=== PATIENT | female | born 1930 | race African-American/Black ===

== ENCOUNTER 2018-08-01 06:07 | Inpatient (IN) ==
--- NOTE | 2018-08-01 07:48 | Diag Imaging Result Doc PS360 ---
EXAM: CHEST-PORTABLE 08/01/2018 HISTORY: ams TECHNIQUE: AP portable at 0739 COMMENT: There is a left pleural effusion. The patient is rotated to the right. There is some interstitial opacity consistent with pulmonary edema. There is cardiomegaly. IMPRESSION: Left pleural effusion. Pulmonary edema. Electronically signed by Jemal Poe 08/01/2018 7:46 AM
--- NOTE | 2018-08-01 08:29 | PROVIDER DOCUMENTATION ---
HPI-General Adult - General Chief Complaint: Altered Mental Status Stated Complaint: AMS Time Seen by Provider: 08/01/18 07:11 Source: family, old records, other (Dr Moreira) Allergies/Adverse Reactions: Patient Allergies Allergy/AdvReac Type Severity Reaction Status Date / Time No Known Allergies Allergy Verified 05/29/18 20:21 Home Medications: Home Medication List Medication Instructions Recorded Confirmed Last Taken Type PRAVAstatin [Pravachol] 40 mg PO HS 12/13/13 05/29/18 05/07/18 21:00 History Folic Acid 1 mg PO QAM 10/30/14 05/29/18 05/07/18 09:00 History Arginine/Glutamine/Calcium Hmb 1 dose PO BID 04/19/17 05/29/18 05/07/18 21:00 History [Tom Packet] Calcium Carbonate/Vitamin D3 1 tab PO BID 04/19/17 05/29/18 05/07/18 21:00 History [Calcium 600 + Vit D Tablet] Brimonidine/Timolol Ophth Soln 1 drop BOTH EYES TID 03/12/18 05/29/18 05/07/18 21:00 History [Combigan Ophth Soln] Levothyroxine [Synthroid] 100 microgm PO QAM 03/12/18 05/29/18 05/07/18 09:00 History Nephro Liquid 3 oz PO DAILY 05/03/18 05/29/18 05/07/18 09:00 History Omeprazole 40 mg PO BID #60 capsule. 05/08/18 05/29/18 Unknown Rx Acetaminophen [Tylenol] 650 mg PO Q6H PRN #0 07/02/18 05/29/18 04/18/17 14:30 Rx Albuterol 2.5MG/Ipratrop 0.5MG 3 ml INH Q2H PRN PRN neb 07/02/18 Unknown Rx [Duoneb (A & A)] Docusate Sodium [Colace] 100 mg PO ORDERED PRN #0 07/02/18 05/29/18 Unknown Rx Hydrocortisone 2.5% Cream 1 applic NC BID #1 tube 07/02/18 Unknown Rx [Anusol-Hc Cream] Lidocaine 5% Patch [Lidoderm] 1 each TOP DAILY patch 07/02/18 Unknown Rx Menthol/Zinc Oxide Ointment 1 applic TOP PRN PRN tube 07/02/18 Unknown Rx [Calmoseptine Ointment] Midodrine [Proamatine] 10 mg PO TID tablet 07/02/18 Unknown Rx Sucralfate [Carafate Liquid] 1 gm PO Q6HR #100 tab 07/02/18 Unknown Rx - History of Present Illness -Gen Adult Nature of Presenting Problems: 87 yo AAF hemodialysis patient was brought to the ER from a SNF due to altered mental status, tachycardia, and general failure to thrive. She was hospitalized recently for six weeks with similar problems, was seen by multiple consultants and reated with antibiotics, hemodialysis , etc. The daughterr apparently refused placement of a feeding tube and she did develop a stage 4 sacral decubitus ulcer. She now has a wound Vac in place. Her daughter is not agreeable to discontinuing dialysis, DNR status or feeding tube. Review of Systems - Adult - REVIEW OF SYSTEMS - ADULT Constitutional: reports: fatique, weight loss Past History - Adult - PAST MEDICAL HISTORY-ADULT Review of Records: reports: Old Records Reviewed Major Childhood Illnesses: reports: denies history Cardiovascular: reports: A-Fib, CAD, CHF (Echo 09/28/13 EF 20-30%), HTN, heart valve problem (tricuspid regurgitation), hyperlipidemia, other (cardiomegaly) Respiratory: reports: COPD, lung disease (pulmonary htn), pneumonia (frequent) Gastrointestinal: reports: denies history Obstetrical/Gynecological: reports: denies history Genitourinary: reports: dialysis (mwf), ESRD, kidney disease (CRI) Musculoskeletal: reports: denies history Neurological: reports: denies history Endocrine/Immune: reports: Diabetes, thyroid disorder Other Conditions: reports: cataract/glaucoma - PRIOR SURGERIES/PROCEDURES Surgical/Procedure History: reports: CABG, cholecystectomy (cataract removal; 3 bypass; intestinal blockage), other (cataract removal) - IMMUNIZATION STATUS Childhood Immunizations: See Nurse Assessment Flu Vaccine: See Nurse Assessment - FAMILY HISTORY Family History: reviewed, not pertinent Physical Exam-General - PHYSICAL EXAM-ADULT Initial Vital Signs Reviewed: Yes - CONSTITUTIONAL General Appearance: moderate distress, cachetic, obtunded - EYES Eyes: pink conjunctivae - HEAD, EARS, NOSE, MOUTH & THROAT HENMT: moist mucous membranes, dental decay. negative: pharynx normal, angioedema - NECK Neck: non-tender. negative: C-spine tenderness - RESPIRATORY Respiratory: chest non-tender, decreased breath sounds, crackles, rhonchi - CARDIOVASCULAR Cardiovascular: JVD, tachycardia, irregularly irregular. negative: normal peripheral pulses - GASTROINTESTINAL (ABDOMEN) Abdominal Exam: non tender, soft, no organomegaly, no pulsatile mass - LYMPHATIC Lymphatic: no adenopathy - MUSCULOSKELETAL Back Exam: kyphosis, swelling. negative: normal inspection Extremity: other (profound muscle mass loss, developing leg and ankle contractors) - SKIN Integumentary: normal color, warm/dry, decubitus (4 x 6 stage IV sacral decubitus ulcer). negative: normal turgor - NEUROLOGIC Neurologic: abnormal gait, motor weakness Progress - PLAN OF CARE/RESULTS Progress/Plan/Lab Results: Vital Signs - 8 hr 08/01/18 06:23 08/01/18 06:54 Pulse Rate 134 H 127 H Respiratory Rate 32 H 30 H Blood Pressure 91/62 91/62 O2 Sat by Pulse Oximetry 97 98 Orders Category Date Time Status CHEST-PORTABLE [RAD] Stat Exams 08/01/18 07:33 Completed BLOOD CULTURE [BLDCUL] Stat Lab 08/01/18 08:09 Ordered CBC WITH ELECTRONIC DIFF [HEME] Stat Lab 08/01/18 08:09 Ordered COMPREHENSIVE METABOLIC PANEL [CHEM] Stat Lab 08/01/18 08:09 Ordered UA NIMS W/REFLEX CULT [URINALYSIS] Stat Lab 08/01/18 07:32 Ordered Result Diagrams: 08/01/18 08:33 - CONSULTS/PCP/HOSPITALIST Notification #1 *Consult/PCP/Hospitalist*: Dr Moreira Time Discussed: 08:00 Consult Disposition: Will see in ED #2 Consult: Dr Mullen Time Discussed: 08:20 Consult Disposition: Will see in ED Departure - Departure Date of Disposition Decision: 08/01/18 Time of Disposition Decision: 08:47 DIAGNOSIS: Altered mental status Qualifiers: Altered mental status type: stupor Qualified Code(s): R40.1 - Stupor Disposition: ADMITTED INPATIENT 09 Certified Medical Emergency: Emergent Condition: Serious Referrals and Follow-Ups: Basim Jacobo III, MD [Primary Care Provider] - - Critical Care Note This patient required my direct & personal management of CC.: Yes Total Time (mins): 35 Critical Care Statement: This patient required my direct personal management to treat or rule out processes, the absence of which, could potentiallly result in sudden, clinically significant life or limb threatening deterioration. Attestation - Physician/ MENRA Attestation The physician spent face to face time with patient:: Yes Advanced Practice Provider documentation review:: Supervising physician onsite and consulted in the evaluation and care of this patient. The physician did have a face to face encounter with the patient.
[2018-08-01 08:43] LABS: BASO# 0.03 X1000 (0.0-0.2); BASO% 0.2 % (0.0-0.8); EOS# 0.01 X1000 (0.0-0.7); EOS% 0.1 % (0.0-10.0); HEMATOCRIT 26.5 % (37.0-47.0); HEMOGLOBIN 7.6 g/dL (12.0-16.0); IMM GRAN# 0.14 X1000 (0.0-0.04); IMM GRAN% 0.9 % (0.0-0.5); LYMPH# 0.67 X1000 (1.2-3.4); LYMPH% 4.5 % (20.5-51.1); MCH 28.3 PG (27-31); MCHC 28.7 g/dL (33-37); MCV 98.5 FL (81-99); MONO# 0.55 X1000 (0.11-0.59); MONO% 3.7 % (1.7-9.3); MPV 11.1 FL (7.4-10.4); NEUT# 13.45 X1000 (1.4-6.5); NEUT% 90.6 % (42.2-75.2); PLT 178 X1000 (130-400); RBC 2.69 XMIL (4.2-5.4); RDW 22.1 % (11.5-14.5); WBC 14.85 X1000 (4.8-10.8)
[2018-08-01] MEDS ORDERED: INVANZ 0.5 GM in NS 50 ML IV SCH ×3 (09:00→20:00)
[2018-08-01] MEDS ORDERED: VANCOMYCIN IV PER PHARMACY MISC SCH ×2 (09:00→09:30)
[2018-08-01 09:08] LABS: ALB/GLOB RATIO 0.4; CALCIUM 8.2 mg/dL (8.8-10.2); CREATININE 2.7 mg/dL (0.5-0.9); TOTAL BILIRUBIN 1.49 mg/dL (0.20-1.00); TOTAL PROTEIN 6.7 g/dL (6.3-8.3)
[2018-08-01] MEDS ORDERED: NS 2,000 ML MISC PRN (09:10)
[2018-08-01] MEDS ORDERED: ALBUMIN 25% IV PRN (09:10)
[2018-08-01] MEDS ORDERED: HEPARIN IV PRN (09:10)
[2018-08-01] MEDS ORDERED: TIGHT: 0.2 ML/HR FOR DIALYSIS MISC PRN (09:10)
--- NOTE | 2018-08-01 09:35 | NEPHROLOGY CONSULTATION ---
DATE: 08/01/2018 REASON FOR CONSULTATION: Renal failure. CONSULTING PHYSICIAN: Dr. Corbin Tripp. HISTORY OF PRESENT ILLNESS: Ms. Henson is an 87-year-old, black female, who is well known to us. She was recently hospitalized at this facility with shingles as well as zoster meningoencephalitis. This was complicated by malnutrition, sacral decubitus, pneumonia, etc. [facility] being discharged from this facility on the 02 of July. She was seen by her daughter on 07/31/2018. At that time, the family states that she was in her usual state of health. Specifically, she was able to sit up in the chair, eat her breakfast and she was able to converse at her normal level of interaction. She was called this morning and told that the patient was unresponsive and was being transferred to the emergency room. At the time of my evaluation, the daughter is at the bedside and she does relate that the patient is not at her baseline. She is lying facing to the right. She calls out, but otherwise was not verbal during my interaction with the daughter. During my previous exam of the patient about 1 hour earlier, she was able to tell me that she had no complaints and that she was not hurting or short of breath, nauseated or vomiting. PAST MEDICAL HISTORY: Includes CKD 5D, hypotension, hyperlipidemia, malnutrition, hypothyroidism. Otherwise as above. HOME MEDICATIONS: Include pravastatin folate, Tom, calcium carbonate, Combigan ophthalmic, levothyroxine, Nepro, omeprazole, albuterol, ipratropium, docusate, lidocaine patch, midodrine, sucralfate. ALLERGIES: None. SOCIAL HISTORY: As above. She resides in [facility]. No alcohol or tobacco. FAMILY HISTORY: Noncontributory. REVIEW OF SYSTEMS: Noncontributory. PHYSICAL EXAMINATION: Vital Signs: Blood pressure 91/62, heart rate 127. Respirations 30. General: No acute distress. Mental status as above. Skin: Warm and dry. Sacral decubitus is not examined. HEENT: Conjunctivae are pink. Pupils are equal. Oropharynx is moist. Facial wasting is present. Neck: Neck veins are distended. Trachea is midline. Heart: PMI nondisplaced, irregular, tachycardic with a murmur. Lungs: Have equal breath sounds. Shallow, no crackles or wheezes. Abdomen: Soft, nontender. Bowel sounds present. No organomegaly, masses, bruits. Extremities: Have minimal edema. No clubbing or cyanosis. Neurologic Exam: Limited, but nonfocal. She has generalized weakness. IMPRESSION: 1. Altered mental status. She does have a mildly elevated white count 14.8. Temperature has not been measured yet. We will need to presume that she has a source of systemic infection. Consider pneumonia, cellulitis related to her ulcer; sepsis, catheter related, etc. Empiric broad-spectrum antibiotics after cultures obtained. 2. Chronic kidney disease 5D. She will have dialysis today. She does have evidence of volume overload on exam. Specifically, she has neck vein distention and pulmonary edema by chest x- ray. 3. Electrolytes/acid base. Data are pending. 4. Atrial fibrillation with rapid ventricular response. She is being treated currently by the primary team. cc: Gera Roberts MD
--- NOTE | 2018-08-01 09:49 | EKG Report ---
Test Performed on : 08/01/2018 06:49:55 AM Test Reason : NO EKG ORDER FOR MUSE Blood Pressure : / mmHG Vent. Rate : 125 BPM Atrial Rate : 065 BPM P-R Int : 000 ms QRS Dur : 138 ms QT Int : 370 ms P-R-T Axes : 000 222 005 degrees QTc Int : 534 ms Undetermined rhythm Right bundle branch block , plus right ventricular hypertrophy Possible Lateral infarct (cited on or before 12-JUN-2018) Abnormal ECG When compared with ECG of 12-JUN-2018 01:58, Current undetermined rhythm precludes rhythm comparison, needs review Questionable change in initial forces of Lateral leads Unconfirmed Result
[2018-08-01] MEDS ORDERED: INVANZ 0.5 GM in NS 50 ML IV ONE (10:00)
[2018-08-01] MEDS ORDERED: VANCOMYCIN 1 GM/NS 1 GM/250 ML IVPB IV ONE (10:00)
--- NOTE | 2018-08-01 11:29 | CONSULTATION ---
DATE OF CONSULTATION: 08/01/2018 REQUESTING PHYSICIAN: Hospitalist service. REASON FOR CONSULTATION: Consult is concerning a sacral decubitus. HISTORY OF PRESENT ILLNESS: An 87-year-old female, known to me, who has been hospitalized previously with shingles zoster and meningeal encephalitis. Her stay was complicated by malnutrition, sacral decubitus, pneumoniae. She had been in a shelter and discharged on 07/02/2018. Apparently, she has had decline in change in mental status. They have been doing wound VAC changes to the sacral decubitus, but she was admitted for renal failure and altered mental status. I was asked to weigh an opinion. The patient is nonverbal. There was no family at the bedside to give further information so details from her past medical reviewed from the chart and from previous evaluations. PAST MEDICAL HISTORY: Chronic kidney disease, hypertension, hyperlipidemia, malnutrition, hypothyroidism. PAST SURGICAL HISTORY: Includes coronary artery bypass, cholecystectomy, right chest wall tunneled hemodialysis catheter. FAMILY HISTORY: Unable to obtain secondary to patient's mental status. SOCIAL HISTORY: Unable to obtain. ALLERGIES: None. MEDICATIONS: MAR reviewed. REVIEW OF SYSTEMS: Unable to obtain secondary to mental status. PHYSICAL EXAMINATION: Vital Signs: The patient is currently afebrile. She does have heart rate in the 120s. Respiratory rate recorded at 30. General: Ill-appearing female looks stated age. HEENT: Normocephalic, atraumatic. Pupils equal, round, reactive to light. Mucous membranes moist. Oropharynx benign. Neck: Supple. Trachea midline. Cardiovascular: Irregularly irregular and tachycardic. Lungs: Grossly clear. Abdomen: Soft, nontender, nondistended. Sacral region with a sacral decubitus with slough noted approximately 4 cm in diameter. It seems to go down close to the bone. I do not see any exposed bone. There is a foul smell associated with it. Extremities: Minimal edema. Neurologic Exam: Limited. LABORATORY: White blood cell count 14, hematocrit 26, platelet count 178,000. Remainder of labs reviewed. ASSESSMENT AND PLAN: An 87-year-old female with stage 3 sacral decubitus. 1. Stage 3 sacral decubitus. At this time, it could be close to a stage 4 but, at this time, given the amount of slough, we will try Vashe wet-to-dry dressing changes twice a day with application of Santyl once a day. We will get wound care involved. We will hold off on the wound VAC for right now. We will see how she does. 2. Multiple medical comorbidities currently being managed by the hospitalist service. cc: Kingsley Villegas MD
[2018-08-01] MEDS ORDERED: VANCOMYCIN 1 GM/NS 1 GM/250 ML IVPB IV SCH ×2 (11:30→16:30)
[2018-08-01] MEDS ORDERED: CARDIZEM IV ONE (11:37)
--- NOTE | 2018-08-01 12:16 | INFECTIOUS DISEASE CONSULT REP ---
DATE: 08/01/2017 CONCLUSION: Patient is admitted to the hospital with a very severe sacral decubitus infected ulcer and an associated osteomyelitis of the sacrum. RECOMMENDATIONS: I have obtained a wound culture from the decubitus ulcer. I agree with treating the patient with ertapenem because earlier she had an infection with an extended spectrum beta lactamase producing organism. I have also added vancomycin in a dose of 1 g IV after each dialysis. I have taken a culture from the sacral wound and have sent it to the Microbiology Lab for culture and susceptibility testing. DISCUSSION: The patient is unable to provide a history. The family member present did not have full knowledge about the patient's illnesses. Information I did obtain was from the computer. The patient is an elderly female. She has end-stage renal disease and is on hemodialysis. She also has hypotension, hyperlipidemia, malnutrition, and hypothyroidism. The patient's laboratory studies thus far show blood cultures have been drawn but the results are not pending. CBC shows a white count of 14,850. Hemoglobin 7.6 and platelet count 178,000. Creatinine is 2.7. GFR is 20. Liver function studies are normal except for slight elevation of the alkaline phosphatase at 115. Blood cultures, as mentioned above, are pending, and I have obtained a culture from the sacral wound and sent it to the Microbiology Laboratory. Chest x-ray shows findings compatible with pulmonary edema. Also present is a left pleural effusion. The [facility] a [facility]. MEDICATIONS IN THE [facility]: 1. Albuterol inhaler. 2. Eyedrops, namely Combigan ophthalmic solution. 3. Colace. 4. Folic acid. 5. Synthroid. 6. Omeprazole. 7. Pravachol. 8. Sucralfate. PHYSICAL EXAMINATION: Vital Signs: No temperature was listed in the chart. Her pulse is 127, respirations are 30, blood pressure was 91/62. General: This is a cachectic, chronically ill- appearing, elderly female, who has a decreased level of consciousness. Head/eyes/ears/nose/throat: No drainage was noted from the nose or ears. Patient did not respond to oral stimuli. Neck: No meningismus. Lungs: Scattered rhonchi bilaterally. Cardiovascular: Heart rate was rapid and irregular. Neck: The patient has a right-sided internal jugular vein catheter used for dialysis. Abdomen: Soft and apparently not tender. Back : There is a large sacral decubitus ulcer. It has a foul odor. There is purulence as black tissue indicating necrosis. The sacral bone was palpable with my gloved hand, thereby, confirming the diagnosis of sacral osteomyelitis. Chest x-ray shows findings compatible with pulmonary edema and a left pleural effusion. Neurologic: The patient did respond to verbal stimuli. I did not see her make any movement while I was examining her. Integument: No rash noted. I also think it would be important to discuss with the family about doing hospice treatment and doing comfort measures because I think her sacral wound cannot be healed. Thank you for the consult. cc: Ward Brennan MD MTDD
--- NOTE | 2018-08-01 12:25 | HISTORY AND PHYSICAL ---
CHIEF COMPLAIN: Acute encephalopathy, tachycardia, and failure to thrive. HISTORY OF PRESENT ILLNESS: The patient appears to have acute encephalopathy and is not able to contribute to the history meaningfully. The history was obtained from emergency room records and the patient's daughter at bedside. Ms. Henson is an 87-year-old woman with a past medical history of end-stage renal disease on dialysis, large sacral decubitus ulcer with rectal prolapse, multiple ESBL UTIs, and others, who was recently admitted to [facility] 1 month prior for herpes virus associated acute encephalopathy and hypotension, [facility] for gradually failing to thrive and confusion. Apparently the baseline mental status of the patient is she is alert and can answer simple questions intermittently. However, she has been progressively declining since discharge a month prior. Her p.o. intake had been significantly decreasing and she had started increasing becoming drowsy. The [facility] the [facility] was also noted to have worsening decubitus ulcer of her sacral wound and she had pus- like discharge coming out, following which she was started on antibiotics. A wound VAC was placed at least couple of weeks ago at the [facility], as per the history given by the daughter. Today morning when the family arrived, the patient was noted to have a high heart rate and she was also very confused, so she was sent to the emergency room. EMERGENCY ROOM COURSE: In the emergency room, the patient was found to have tachycardia, likely atrial fibrillation with heart rate of 120s. She was also found to have leukocytosis. There was pus-like discharge coming out of sacral decubitus, so she was admitted for suspected sepsis from sacral decubitus. Intravenous antibiotics were started. REVIEW OF SYSTEM: The patient does not appear in any acute distress. Review of system could not be obtained. According to patient's daughter, the patient did not have a known headache. She did not complain of chest pain or shortness of breath. Abdomen: She did not have any nausea, vomiting, or abdominal pain according to the daughter. Genitourinary: Patient occasionally makes urine. However, daughter could not provide much history. Otherwise review of systems were negative. PAST MEDICAL HISTORY: 1. History of type 2 diabetes mellitus. 2. End-stage renal disease, on dialysis. 3. Cardiomyopathy. 4. Pulmonary artery hypertension. 5. Chronic atrial fibrillation. 6. Hyperlipidemia. 7. Coronary artery disease status post CABG. 8. 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 9. Thrombocytopenia. 10. Anemia of chronic disease. PAST SURGICAL HISTORY: 1. Coronary artery bypass graft. 2. Cholecystectomy. 3. Right tunneled dialysis catheter placement. FAMILY HISTORY: Positive for heart disease and diabetes. SOCIAL HISTORY: She is currently not using tobacco, alcohol, or drugs. [facility] in a [facility]. ALLERGIES: No known allergies. HOME MEDICATIONS: At the time of discharge she was sent on Tom packet 1 p.o. b.i.d., Combigan ophthalmic solution 1 drop both eyes t.i.d., calcium vitamin D 1 tablet b.i.d., folic acid 1 mg in the morning, Synthroid 100 mcg in the morning, Nepro 3 ounces p.o. daily, Pravachol 40 mg at nighttime, Tylenol 650 mg q.6 hours p.r.n., DuoNeb 3 mL inhaled q.2 hours p.r.n. , Colace 100 mg as tolerated, Anusol cream 1 application p.r. b.i.d., Lidoderm 1 topical daily, Calmoseptine for diaper rash, midodrine 10 mg t.i.d., Prilosec 40 mg b.i.d. PHYSICAL EXAMINATION: VITAL SIGNS: Temperature is 98.8 degrees, pulse 125 per minute, blood pressure 100/57, saturating 98% on room air. GENERAL: The patient appears in mild distress. Does not follow commands. She appears awake and occasionally agitated. RESPIRATORY: Air entry bilaterally equal. No wheeze, rhonchi, or crackles. CARDIOVASCULAR: S1, S2 normal. No murmur or gallop. Tachycardic. ABDOMEN: Soft, nontender. EXTREMITIES: Lower extremities, mild edema. SKIN: She has an unstageable sacral decubitus ulcer which is extending up to the bone. She has a wound VAC and there was liquidy pus coming out of it. LABS: Suggestive of leukocytosis, normocytic anemia, normal platelet count, hypernatremia, end- stage renal disease related elevated BUN and creatinine, elevated total bilirubin. MICROBIOLOGY: Blood culture and wound cultures are in the lab. ASSESSMENT AND PLAN: 1. Acute encephalopathy, likely a combination of severe sepsis and now gradual physical deconditioning. I did not have any focal neurological deficit on my examination as she was moving all of her extremities and pupils were bilaterally equal and reacting to light. I will consider getting a head CT when she is more stable. 2. 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 She also previously had multiple ESBL UTIs. Follow up with urine culture, which would likely grow organisms. Continue broad-spectrum vancomycin and intravenous ertapenem for now. 3. Atrial fibrillation with RVR. I will go ahead and give a 1 time dose of diltiazem. Considering her severe anemia and her general debility, she may not be the ideal candidate for anticoagulation. I will also consider PO metoprolol if IV access is an issue. I think her AFib is secondary to Sepsis. If needed in the future, I will consult Cardiology. 4. End-stage renal disease, on dialysis. Dr. Roberts has been consulted. 5. Type 2 diabetes mellitus. I will continue frequent blood sugar checks and if needed we will add insulin to her regimen. 6. Disposition. The patient remains inside the hospital for her sepsis. The patient's general condition has significantly declined. Her code status is DNR level 1. I will go ahead and have palliative care consult and to have discussion with the patient's family members about need for hospice care. Plan of care was initially discussed with the patient 's daughter at bedside and son later on. cc: Ace Guerra MD MTDD
[2018-08-01] MEDS: HEPARIN SUBQ SCH ×2 (12:39→22:17)
[2018-08-01] MEDS: PROTONIX IV SCH (12:39)
[2018-08-01] MEDS: PROAMATINE PO SCH ×2 (12:40→16:24)
[2018-08-01] MEDS ORDERED: ALBUMIN 25% IV ONE (14:27)
[2018-08-01] MEDS: INVANZ 0.5 GM in NS 50 ML IV SCH (18:05)
[2018-08-01] MEDS: SANTYL OINT TOP SCH (18:06)
--- NOTE | 2018-08-02 06:05 | GENERAL SURGERY PROGRESS NOTE ---
DATE: 08/02/2018 The patient was transferred to a private room. Discussed her case with Chapis Talavera, with Wound Care. We will do Vashe wet-to-dry dressing and try to see if we can clean this wound. We will also apply Santyl. May be difficult to get this wound to heal, but we will continue supportive care. cc: Kingsley Villegas MD
[2018-08-02 06:56] LABS: INR 1.13; PROTIME 15.4 Seconds (11.0-16.0)
[2018-08-02 06:57] LABS: PTT 45.8 Seconds (22.3-41.8)
[2018-08-02 07:05] LABS: BASO# 0.03 X1000 (0.0-0.2); BASO% 0.2 % (0.0-0.8); EOS# 0.61 X1000 (0.0-0.7); EOS% 4.3 % (0.0-10.0); HEMATOCRIT 23.8 % (37.0-47.0); HEMOGLOBIN 6.8 g/dL (12.0-16.0); IMM GRAN# 0.08 X1000 (0.0-0.04); IMM GRAN% 0.6 % (0.0-0.5); LYMPH# 0.62 X1000 (1.2-3.4); LYMPH% 4.4 % (20.5-51.1); MCH 28.1 PG (27-31); MCHC 28.6 g/dL (33-37); MCV 98.3 FL (81-99); MONO# 0.36 X1000 (0.11-0.59); MONO% 2.6 % (1.7-9.3); MPV 11.6 FL (7.4-10.4); NEUT# 12.39 X1000 (1.4-6.5); NEUT% 87.9 % (42.2-75.2); PLT 151 X1000 (130-400); RBC 2.42 XMIL (4.2-5.4); WBC 14.09 X1000 (4.8-10.8)
[2018-08-02 07:12] LABS: CALCIUM 8.3 mg/dL (8.8-10.2); CREATININE 1.7 mg/dL (0.5-0.9); POTASSIUM 3.6 mmol/L (3.5-5.1)
--- NOTE | 2018-08-02 07:26 | NEPHROLOGY PROGRESS NOTE ---
DATE: 08/02/2017 SUBJECTIVE: Patient currently resting in bed. Minimal response. OBJECTIVE: Vital Signs: Temperature 99.1, pulse 92, respiratory rate 28, blood pressure 77/33. Intake has not been documented. Output none. PHYSICAL EXAMINATION: General: This is an acutely ill-appearing elderly female resting in bed. Her eyes are closed, but she will rouse and moan with tactile stimuli. She does not respond verbally other than moaning. HEENT: Normocephalic, atraumatic. Oral mucosa appears dry. Dentition is poor. Neck is supple. There is no JVD. Cardiovascular reveals irregularly irregular rhythm. She has a controlled rate. Pulmonary: She is on O2 supplementation. She has no increased work of breathing. She does have decreased breath sounds posteriorly. There are no crackles or wheeze. Abdomen is soft flat, positive bowel sounds. : Not inspected. Minimal void. Extremities: There is no clubbing, cyanosis. No edema is noted. Integumentary: Skin is dry and warm. LAB DATA: Pending. ASSESSMENT AND PLAN: 1. Chronic kidney disease 5D. She was dialyzed yesterday per her routine. We were unable to achieve any ultrafiltration and actually had to give some albumin during treatment to maintain blood pressures. She does not have any indications for dialysis today. We will plan to dialyze her again in the morning and continue her routine treatment. 2. Altered mental status, elevated white count, sepsis. Blood cultures are still pending. Chest x-ray indicated pleural effusion and pulmonary edema but no pneumoniae. They have been unable to obtain a urine specimen. She is currently on ertapenem, vancomycin. We will continue these treatments. 3. Electrolytes, acid-base balance, anemia. Continue her routine treatments. DISPOSITION: She is a DNR I. No change in her dialysis plan at this time. I have discussed the role of [facility] with her family several times in the past. They are satisfied with the outcome of dialysis currently. rg Dictated by MANDI Eli for Gera Roberts MD Face to face encounter, data reviewed, discussed with David Moreno on 08/02/17. I agree with the above assessment and plan of care. rg cc: Gera Roberts MD [facility]
[2018-08-02 07:37] LABS: LYMPHS 4 % (21-51); SEGS 96 % (42-75)
[2018-08-02] MEDS ORDERED: NS 500 ML IV ONE (07:46)
--- NOTE | 2018-08-02 09:38 | EKG Report ---
Test Performed on : 08/02/2018 08:42:37 AM Test Reason : chest pain Blood Pressure : / mmHG Vent. Rate : 116 BPM Atrial Rate : 129 BPM P-R Int : 000 ms QRS Dur : 144 ms QT Int : 396 ms P-R-T Axes : 000 234 027 degrees QTc Int : 550 ms Atrial fibrillation. with rapid ventricular response. with premature ventricular or aberrantly conduc nevin complexes. Right bundle branch block Abnormal ECG When compared with ECG of 01-AUG-2018 06:49, (Unconfirmed) Previous ECG has undetermined rhythm, needs review Borderline criteria for Lateral infarct are no longer present Confirmed by [place] LEON, Yohannes Saldaña ([id number]) on 08/02/2018 7:43:39 PM
[2018-08-02] MEDS: PROAMATINE PO SCH ×3 (10:09→17:53)
[2018-08-02] MEDS ORDERED: NS 500 ML ONE (12:33)
[2018-08-02] MEDS: HEPARIN SUBQ SCH ×2 (12:42→20:28)
[2018-08-02] MEDS: SANTYL OINT TOP SCH (14:00)
--- NOTE | 2018-08-02 15:14 | PROGRESS NOTE ---
DATE: 08/02/2018 INTERVAL HISTORY: The patient remains encephalopathic. Blood pressure with downtrend this morning, but did respond somewhat to small fluid bolus. The patient's sepsis favored to represent infected decubitus ulcers related to advanced dementia, malnutrition and failure to thrive. [place] likely poor to grim, but family continues to insist that everything be done. We will help to continue to discuss with family. Palliative Care following and also discussing the situation with family. REVIEW OF SYSTEMS: Unable to obtain secondary to patient's mental status. LABS: WBC 14, hemoglobin 6.8, hematocrit 23.8, platelets 151. INR 1.1. PT 15.4. Sodium 142, potassium 3.6, bicarbonate 18. BUN 33, creatinine 1.7, glucose 158. OBJECTIVE: Vitals: T-max 99.1 degrees, pulse 117, respirations 18, blood pressure 84/32, O2 saturation 100% on 2 L by nasal cannula. General: On physical examination, no acute distress, chronically ill appearing, slightly cachectic, elderly female laying in bed. Vitals: As above. HEENT: Normocephalic, atraumatic. Neck: No cervical adenopathy. Tunneled dialysis catheter noted in right neck/upper chest. Cardiovascular: Slightly tachycardic, intermittently irregular. No murmurs noted. Pulmonary: Largely clear to auscultation bilaterally with only slight decrease at the left base. Abdomen: Soft, nontender, nondistended. Bowel sounds decreased, but present. Extremities: Peripheral pulses decreased, but present. No clubbing or cyanosis noted. There is 1+ to 2+ pitting edema bilateral lower extremities and left arm. Qbmtcx-bi-st swelling of right upper extremity noted. Psychiatric: Patient somnolent, responsive only to noxious stimuli. Occasional nonpurposeful movement and moaning, but unable to converse. ASSESSMENT AND PLAN: 1. Severe sepsis bordering on septic shock: Suspected source is sacral decubitus ulcers. 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 Multiple resistant urinary tract infections in the past, currently on vancomycin and ertapenem. We will continue this for now. Overall prognosis quite poor. 2. Metabolic encephalopathy: The patient with fairly significant dementia at baseline, but reportedly worsened. Responsive only to noxious stimuli currently. Likely related to significant underlying dementia in the setting of acute infection. Treatment as above. 3. End-stage renal disease and anemia of chronic disease: Continuing dialysis as per Nephrology, although hypotension may make this difficult. 4. Severe protein calorie malnutrition: Patient with extremely poor oral intake for quite some time. Cachectic on exam. Suspect wound healing will be extremely problematic. No plans for percutaneous endoscopic gastrostomy tube in this patient with advanced dementia. 5. Atrial fibrillation, slightly tachycardic earlier, but largely normal rate at this time: Continue to monitor. 6. Pulmonary hypertension: Complicates patient's overall picture, but only slight pulmonary edema on chest x-ray on admission. Her blood pressure does not give us any room to attempt diuresis or further dialysis at this time. Continue to monitor respiratory status. 7. Hypothyroidism: Continue home Synthroid for now. Thyroid stimulating hormone pending. If she continues to be unable to take oral well, then may have to change Synthroid to intravenous. 8. Deep vein thrombosis prophylaxis. Heparin. 9. Disposition: Patient is do not resuscitate. Long-term prognosis extremely poor. Short-term prognosis fairly poor. Continue antibiotics and wound care as above. We will continue discussions with family, but they have thus far been quite resistant to the idea of comfort care.
[2018-08-02] MEDS ORDERED: INVANZ 0.5 GM in NS 50 ML IV SCH (17:00)
[2018-08-02] MEDS: PROTONIX IV SCH (17:46)
[2018-08-02] MEDS: INVANZ 0.5 GM in NS 50 ML IV SCH (17:50)
[2018-08-03] MEDS ORDERED: SOLU-CORTEF IV ONE (02:25)
[2018-08-03] MEDS ORDERED: NS 500 ML IV ONE (02:25)
--- NOTE | 2018-08-03 03:19 | INFECTIOUS DISEASE PROGRESS NO ---
DATE: 08/02/2018 PRESENT ILLNESS: The patient has a very severe sacral decubitus ulcer which has a horrible infection and also necrosis. The patient's sacrum is involved therefore the osteomyelitis of the sacrum. 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 MEDICATIONS: This is the first day of treatment with ertapenem and vancomycin. PHYSICAL EXAMINATION: Vital Signs: Temperature is 97.9 degrees, pulse 82, respirations 18, blood pressure 84/32. General: This is a chronically ill and malnourished-appearing elderly female. She is delirious. Head, eyes, earns, nose, and throat: No drainage noted from the nose or ears. Neck: No stiffness. Thorax: The patient has a right-sided internal jugular venous dialysis catheter in place. The site is not swollen or draining. Lungs: Clear to auscultation. Cardiovascular: Heart rate is irregular. Abdomen: Soft and nontender. Yesterday the viewed the patient's sacral decubitus. It has a foul odor to it. There is purulence as well as necrotic tissue, and bone from the sacrum can be palpated with a gloved hand. Neurologic: The patient is delirious. She occasionally screams out. She did not respond to verbal stimuli. LABS AND X-RAY: The CBC for today shows a white count of 14,090, hemoglobin 6.8, and platelet count 151,000, creatinine is 1.7, GFR is 34. 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 ASSESSMENT AND PLAN: The patient has a severely infected sacral decubitus ulcer. My plan is to continue with the current antibiotics pending culture results, and the patient is receiving local care to her sacral decubitus ulcer. COMORBIDITIES: She is elderly. She is malnourished. She also has end-stage renal disease and she is on hemodialysis. cc: Ward Brennan MD
--- NOTE | 2018-08-03 07:01 | GENERAL SURGERY PROGRESS NOTE ---
DATE: 08/03/2018 ASSESSMENT AND PLAN: Nurses were able to get an IV yesterday. At this point given the overall clinical condition, we will hold off on any placement of a central line. She does have a tunneled hemodialysis catheter of emergent IV access if needed if this one fails. At this point, I will continue local wound care for her sacral decubitus as ordered. I did have a discussion with one of the son's in the room. They still want to do everything to try to get her back to a situation and go back to the half-way. At this point we will continue to follow the family's wishes. We will continue current treatment. We will hold off on central line. cc: Kingsley Villegas MD
[2018-08-03] MEDS ORDERED: TIGHT: 0.2 ML/HR FOR DIALYSIS MISC PRN (07:24)
[2018-08-03] MEDS ORDERED: NS 2,000 ML MISC PRN (07:24)
[2018-08-03] MEDS ORDERED: HEPARIN IV PRN (07:24)
[2018-08-03 07:48] LABS: HEMATOCRIT 27.5 % (37.0-47.0); HEMOGLOBIN 8.1 g/dL (12.0-16.0); MCH 28.5 PG (27-31); MCHC 29.5 g/dL (33-37); MCV 96.8 FL (81-99); MPV 11.4 FL (7.4-10.4); RBC 2.84 XMIL (4.2-5.4); WBC 15.47 X1000 (4.8-10.8)
[2018-08-03 08:05] LABS: ALB/GLOB RATIO 0.9; ALBUMIN 2.5 g/dL (3.5-5.0); CALCIUM 8.3 mg/dL (8.8-10.2); CREATININE 2.2 mg/dL (0.5-0.9); POTASSIUM 4.1 mmol/L (3.5-5.1); TOTAL BILIRUBIN 1.48 mg/dL (0.20-1.00); TOTAL PROTEIN 5.4 g/dL (6.3-8.3)
[2018-08-03] MEDS: SODIUM CHLORIDE 0.9% INJ PRN (09:09)
[2018-08-03] MEDS: PROAMATINE PO SCH ×3 (09:09→19:27)
[2018-08-03] MEDS: PROTONIX IV SCH (09:09)
[2018-08-03] MEDS: HEPARIN SUBQ SCH ×2 (09:09→21:07)
--- NOTE | 2018-08-03 10:40 | NEPHROLOGY PROGRESS NOTE ---
DATE: 08/03/2018 SUBJECTIVE: No change. She is really unresponsive today. Eyes are open, but she does not respond verbally or look toward me. OBJECTIVE: Vital Signs: Blood pressure 84/50, heart rate 118, respirations 22, afebrile. Intake 1.4 L. Output 0. PHYSICAL EXAMINATION: No acute distress. Skin is warm and dry. Conjunctivae are pink. Oropharynx is dry. Neck veins are distended with hepatojugular reflux. Heart is tachycardic. Lungs have equal breath sounds with rhonchi. Abdomen soft, nontender. Diminished bowel sounds. Extremities have 2+ edema. No clubbing or cyanosis. IMPRESSION: CKD 5B. Today, is her routine dialysis today. We will plan for hemodialysis with a goal of 3 L ultrafiltration; however, she has very low blood pressure and tachycardia which may limit ultrafiltration. I will administer albumin prior to her treatment in an attempt to redistribute her total body water in a way that may help her blood pressure. She has significant metabolic acidosis with elevated anion gap this morning. This has evolved over her admission. We will check ABG and an acetone. Poor prognosis overall. cc: Gera Roberts MD
[2018-08-03 10:42] LABS: ALLEN TEST YES; BE -12.4 mmoll (-3.0-3.0); BLOOD TYPE ARTERIAL; HCO3-(ACT) 15.2 mmoll (20.0-26.0); O2(CT) 10.9 mL/dL (15.0-23.0); O2HB 91.8 % (95.0-99.0); PCO2(98.6) 30 mmHg (35-45); PO2(98.6) 72 mmHg (60-100); SAMPLE BLOOD; SAO2 94.4 % (95.0-100.0); THB 8.4 g/dL (11.5-17.4); pH(98.6) 7.26 (7.35-7.45)
[2018-08-03 10:44] LABS: MODALITY CANNULA
[2018-08-03] MEDS: ALBUMIN 25% IV SCH (11:47)
--- NOTE | 2018-08-03 14:48 | PROGRESS NOTE ---
DATE: 08/03/2018 INTERVAL HISTORY: The patient remains markedly encephalopathic and essentially unresponsive to anything but noxious stimuli. She has had slow mild decline in already tenuous blood pressure. I had a long discussion with the patient's oldest son, who is not the primary decision-maker. He seemed very reasonable. He seemed very accepting that the patient is near the end of her life. He wished to continue dialysis, but did not wish for any further escalation of care. However, states he will have to talk to Panfilo, who is the youngest son and the primary decision-maker, before making any real decisions. He stated that Panfilo is at work, but he would speak to him later. I informed him that I would be happy to speak with Panfilo if he became available. REVIEW OF SYSTEM: Unable to obtain secondary to patient's mental status. LABORATORY DATA: White count 15.4, hemoglobin 8.1, hematocrit 27.5. ABG with pH 7.26, CO2 30. Sodium 142, potassium 4.1, bicarb 13, creatinine 2.2, glucose 223. Lactate 2. Albumin 2. OBJECTIVE: Vital Signs: T-max 99.1 degrees, pulse 106, respirations 22, blood pressure 78/47, O2 saturation 100% on 2 liters by nasal cannula. General: No acute distress. Vitals as above. HEENT: Normocephalic, atraumatic. No cervical adenopathy. Pupils slightly asymmetric, but both briskly reactive. Cardiovascular: Slightly tachycardic, slightly irregular. Pulmonary: Significantly decreased breath sounds on the right with scattered rhonchi. Abdomen: Soft, nontender, nondistended. Bowel sounds decreased, but present. Extremities: Peripheral pulses significantly decreased. 3+ lower extremity edema bilaterally. Neurologic: Exam limited by patient's mental status. Pupils slightly asymmetric, but briskly responsive as above. Gag reflex intact. Grimaces to noxious stimuli. Occasional spontaneous movement of the head. No clear focal deficits at this time. Psychiatric: Encephalopathic with only minimal reaction to noxious stimuli as above. No purposeful movement. Skin: Some increased swelling, but no new rashes or lesions. Previously noted decubitus ulcers bandaged. ASSESSMENT AND PLAN: 1. Severe sepsis bordering on septic shock: Likely source sacral decubitus ulcers. On broad- spectrum antibiotics with vancomycin and ertapenem, but limited response. Suspect her prognosis is quite poor. The family I spoke to earlier seemed to be coming to terms with this, but I have yet to speak with the primary decision-maker. Will attempt to hold of him by phone later. The family that is available state that they want to continue dialysis, but want no more aggressive measures than are currently being performed. 2. Metabolic encephalopathy. Patient with fairly significant dementia at baseline, but significantly worse. At baseline, patient reportedly able to have mostly reasonable short conversations. Current encephalopathy likely related to significant underlying dementia in the setting of acute infection and multiorgan system failure. 3. End-stage renal disease and anemia of chronic disease. We have been continuing dialysis so far, but given the patient's slowly worsening hypotension, uncertain if dialysis will be possible and if it is possible, uncertain how much good it will do, but the family wishes to continue if at all possible. 4. Severe protein-calorie malnutrition. Patient with poor oral intake, although reportedly feeding herself some prior to admission. Cachectic on exam. Suspect wound healing will be extremely problematic. No plans for percutaneous endoscopic gastrostomy tube in this patient with advanced dementia. If the family does not wish to move to comfort care, then will have to consider tube feeds in the near future. 5. Atrial fibrillation, slightly tachycardic intermittently. As rate is only mildly elevated and blood pressure is quite low, we will refrain for starting diltiazem drip or amiodarone at this time. 6. Pulmonary hypertension. Repeat chest x-ray pending. She does have decreased breath sounds on the right. Concerned that she may be developing some volume overload. Likely little to be done about it, however. Will continue to monitor respiratory status and await chest x-ray. 7. Hypothyroidism. Continue home Synthroid. 8. Deep vein thrombosis prophylaxis. Heparin. 9. Disposition. The patient is Do Not Resuscitate. Prognosis extremely poor. Further discussion with family as above. Hopeful that they will proceed with comfort care in the immediate future. [facility]
[2018-08-03] MEDS ORDERED: HUMULIN R SUBQ ONE ×2 (16:14→17:26)
[2018-08-03] MEDS ORDERED: VANCOMYCIN 1 GM/NS 1 GM/250 ML IVPB IV ONE (17:00)
[2018-08-03] MEDS ORDERED: D50W SYRINGE IV PRN (17:49)
[2018-08-03] MEDS ORDERED: HUMULIN R 100 UNIT in NS 99 ML IV SCH (17:49)
[2018-08-03] MEDS ORDERED: NS 1,000 ML IV SCH (17:49)
[2018-08-03] MEDS ORDERED: HUMULIN R IV ONE (17:49)
[2018-08-03 18:13] LABS: ALLEN TEST YES; BE -4.6 mmoll (-3.0-3.0); BLOOD TYPE ARTERIAL; HCO3-(ACT) 21.3 mmoll (20.0-26.0); METHB 0.8 % (0.0-1.5); O2(CT) 10.7 mL/dL (15.0-23.0); O2HB 92.3 % (95.0-99.0); PCO2(98.6) 35 mmHg (35-45); PO2(98.6) 67 mmHg (60-100); SAMPLE BLOOD; SAO2 93.2 % (95.0-100.0); THB 8.2 g/dL (11.5-17.4); pH(98.6) 7.37 (7.35-7.45)
[2018-08-03 18:14] LABS: MODALITY CANNULA
[2018-08-03] MEDS: SANTYL OINT TOP SCH (18:41)
[2018-08-03] MEDS: ZOSYN 2.25 GM in NS 50 ML IV SCH (18:43)
--- NOTE | 2018-08-03 18:56 | PROGRESS NOTE ---
DATE: 08/03/2017 Patient noted to have increasing gap acidosis on labs this morning. ABG obtained showing low pCO2 and essentially normal lactate. Acetone obtained which came back with significant acetone level. 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 Will move to the ICU. Start insulin drip. Do serial ABGs and BMPs. As patient's glucose has been in the mid 100s to low 200s without insulin suspect she will rapidly need D10 to prevent hypoglycemia. As she already has increasing pulmonary edema on chest x-ray and significant lower extremity edema the amount of fluid we can give her may be somewhat limited but we will try and see. Discussed current situation and case with the power of third grade teacher her younger son Panfilo. He continues to want everything done. [facility]
[2018-08-03 19:57] LABS: HEMOGLOBIN A1C 5.8 % (4.8-6.0)
[2018-08-03 21:35] LABS: CALCIUM 8.2 mg/dL (8.8-10.2); CREATININE 1.3 mg/dL (0.5-0.9); MAGNESIUM 1.8 mg/dL (1.5-2.7); PHOSPHORUS 1.7 mg/dL (2.7-4.5); POTASSIUM 2.9 mmol/L (3.5-5.1)
[2018-08-03 22:00] LABS: CALCIUM 8.2 mg/dL (8.8-10.2); CREATININE 1.2 mg/dL (0.5-0.9); MAGNESIUM 1.6 mg/dL (1.5-2.7); PHOSPHORUS 1.7 mg/dL (2.7-4.5); POTASSIUM 2.7 mmol/L (3.5-5.1)
[2018-08-03] MEDS ORDERED: POTASSIUM CHLORIDE 20 MEQ/SWI 20 MEQ/100 ML IVPB IV PRN (22:35)
[2018-08-03] MEDS ORDERED: MAGNESIUM SULFATE 2 GM/S.W.I. 2 GM/50 ML IVPB IV ONE (22:41)
[2018-08-03] MEDS ORDERED: SODIUM PHOSPHATE 20 MMOL in NS 250 ML IV ONE (22:47)
[2018-08-03] MEDS ORDERED: POTASSIUM CHLORIDE 40 MEQ/SWI 40 MEQ/100 ML IVPB IV PRN (22:57)
[2018-08-03] MEDS ORDERED: POTASSIUM CHLORIDE 10 MEQ in D5 NS 1,000 ML IV SCH (23:00)
[2018-08-04] MEDS: ZOSYN 2.25 GM in NS 50 ML IV SCH ×5 (00:12→23:19)
--- NOTE | 2018-08-04 05:10 | INFECTIOUS DISEASE PROGRESS NO ---
DATE: 08/03/2018 PRESENT ILLNESS: The patient has a large sacral decubitus ulcer, it extends to bone, therefore the patient has osteomyelitis as well as an infected sacral decubitus. One of two blood cultures is positive for gram-positive coccus. It has not yet been identified. MEDICATIONS: The patient was on ertapenem and vancomycin. I have discontinued ertapenem and I put the patient on Zosyn and the dose modified because of the patient's renal failure. Also I have ordered that vancomycin should be given after dialysis tonight, but to DC it afterwards. PHYSICAL EXAMINATION: Vital Signs: Temperature is 97.4 degrees, pulse 127, respirations are 24, blood pressure is 78/47. The patient is 5 feet 6 inches tall, weighs 132 pounds. General: This is an ill, malnourished-appearing, elderly female, who is in no acute distress at this time. Head/eyes/ears/nose/throat: I did not see any drainage coming from her nose or ears. I only saw a very small part of her tongue, it did not have any white patches on it. Neck: No meningismus. The patient has a right internal jugular venous dialysis catheter in place. The catheter site is not swollen or draining. Lungs: Clear to auscultation. Cardiovascular: Heart rate is irregular. Abdomen: Soft and nontender. The patient was being dialyzed, but I was told by the nurse that the patient has a VAC over her sacral decubitus ulcer. Neurologic: The patient for the most part was sleeping, I did not see her move any extremities. LAB AND X-RAY: CBC today shows a white count of 15,470, hemoglobin 8.1, and platelet count 130,000. Blood gases show a pH of 7.26, a pO2 of 72, and pCO2 of 30. Creatinine is 2.2, GFR is 26. Culture from the patient's sacral decubitus ulcer grew E. Coli and Proteus. The patient has 1 of 2 blood cultures growing a gram-positive coccus that has not yet been identified. ASSESSMENT AND PLAN: The patient has the VAC on already. I have switched the patient from ertapenem and vancomycin to Zosyn, also I have ordered that the patient get her dose of vancomycin tonight after dialysis, but after that vancomycin will be discontinued. COMORBIDITIES: The patient is elderly and malnourished. She has end-stage renal disease and she is on hemodialysis. cc: Ward Brennan MD
[2018-08-04 05:13] LABS: HEMATOCRIT 23.8 % (37.0-47.0); HEMOGLOBIN 7.3 g/dL (12.0-16.0); MCH 28.9 PG (27-31); MCHC 30.7 g/dL (33-37); MCV 94.1 FL (81-99); MPV 11.6 FL (7.4-10.4); RBC 2.53 XMIL (4.2-5.4); RDW 21.6 % (11.5-14.5); WBC 10.91 X1000 (4.8-10.8)
[2018-08-04 06:10] LABS: ALBUMIN 2.8 g/dL (3.5-5.0); CREATININE 1.4 mg/dL (0.5-0.9); MAGNESIUM 2.3 mg/dL (1.5-2.7); PHOSPHORUS 2.9 mg/dL (2.7-4.5)
--- NOTE | 2018-08-04 07:07 | Diag Imaging Result Doc PS360 ---
EXAM: CHEST-PORTABLE 08/04/2018 HISTORY: dyspnea, decreased breath sounds on R TECHNIQUE: AP portable at 0558 COMMENT: There is a double-lumen catheter in the right internal jugular with its tip in the right atrium. There are pleural fluid collections bilaterally. The volume of pleural fluid on the right has increased markedly since the previous study of 08/01/2018. There is generalized pulmonary edema in the left lung. The heart size is enlarged. IMPRESSION: Worsened right pleural effusion. Electronically signed by Jemal Poe 08/04/2018 7:05 AM
[2018-08-04] MEDS: PROTONIX IV SCH (08:15)
[2018-08-04] MEDS: HEPARIN SUBQ SCH ×2 (08:15→21:12)
[2018-08-04] MEDS: ALBUMIN 25% IV SCH (08:15)
[2018-08-04] MEDS: SANTYL OINT TOP SCH (08:16)
[2018-08-04] MEDS: PROAMATINE PO SCH ×3 (08:16→18:04)
[2018-08-04] MEDS ORDERED: NS 2,000 ML MISC PRN ×2 (09:35→12:53)
[2018-08-04 11:22] LABS: CALCIUM 8.1 mg/dL (8.8-10.2); CREATININE 1.4 mg/dL (0.5-0.9); MAGNESIUM 2.3 mg/dL (1.5-2.7); PHOSPHORUS 2.8 mg/dL (2.7-4.5); POTASSIUM 3.7 mmol/L (3.5-5.1)
[2018-08-04] MEDS: HEPARIN IV PRN ×2 (11:45→13:21)
--- NOTE | 2018-08-04 11:51 | Diag Imaging Result Doc PS360 ---
EXAM: CHEST-PORTABLE 08/04/2018 HISTORY: NGT placement TECHNIQUE: AP portable chest and abdomen for NG tube placement at 1141 COMMENT: The tip of the NG tube appears to be at the level of the diaphragm. This may be in the cardia of the stomach. IMPRESSION: NG tube in the distal esophagus or upper stomach. Electronically signed by Jemal Peo 08/04/2018 11:49 AM
--- NOTE | 2018-08-04 11:59 | PROGRESS NOTE ---
DATE: 08/04/2018 SUBJECTIVE: This patient is lying in bed, she still is encephalopathic, she is not following commands. Blood pressure has been borderline low in the 90s and sometimes in the 80s and even in the 70s. It looks like 3 L of fluid has been removed from yesterday, acetone level was high as well as the anion gap. So DKA protocol has been started. I will decrease the fluids right now because she seems to be overloaded and also I will ask for a central line to be placed so I can put her on some pressors if the blood pressure is still dropping. I will try to decrease and either stop IV fluids as much as I can. I just asked for a new acetone level to see how she is doing. OBJECTIVE: Vital Signs: Temperature 97.8, pulse 77, respiratory rate 17, blood pressure 90/54, oxygen saturation 94% on 2 L of nasal cannula. HEENT: Head normocephalic. No trauma. PERRLA. Neck: Supple. I do not see JVD. Central trachea. Chest: Decreased breath sounds mostly on the right base with some rhonchi and crepitus. Abdomen: Soft, nontender, nondistended. Positive bowel sounds. Extremities: 3+ lower extremity edema bilaterally. I do not see clubbing or cyanosis. Neurological: Neuro examination is limited due to her mental status. She grimaces with pain stimulation. She is not following commands. She is alert on and off. She is opening her eyes spontaneously and moving her head spontaneously as well. I do not see any focal deficits right now. LABORATORY: WBC 10.9, hemoglobin 7.3, hematocrit 23.8, platelets 106. Sodium 144, potassium 3, chloride 102, bicarbonate 24, BUN 29, creatinine 1.4, glucose 88, calcium 8, albumin 2.8. ASSESSMENT AND PLAN: 1. Severe sepsis bordering on septic shock. I will ask for a central line. I will probably put this patient on pressor if the blood pressure is still dropping. It has been mostly in the 80s and 90s but sometimes it has been in the 70s. We will continue with antibiotic per infectious disease department. I do not want to give her too much fluids because she is already overloaded. She received dialysis yesterday and apparently 3 L of fluid has been removed. 2. Likely diabetic ketoacidosis. She has been placed on insulin drip. I will ask for a new acetone level. I will continue following the protocol but I will minimize the IV fluids, even I will try to stop it. 3. End-stage renal disease and anemia of chronic disease. Continue with dialysis as scheduled. Apparently she has been having some problems with hypotension that is limiting her dialysis but as per the report 3 L of fluid has been removed yesterday. 4. Severe protein calorie malnutrition. I think the wound healing is going to be problematic due to her decreased muscle mass. Probably I will talk to the family to see if they want to start feeding this patient through the NG tube. She is not even tachycardic right now. We will monitor this patient closely. 5. Pulmonary hypertension with right pleural effusion. We will monitor for now. I will try to minimize as much as I can the IV fluids. We will continue monitoring her respiratory status. 6. Hypothyroidism. Continue with Synthroid. 7. DVT prophylaxis with heparin. 8. Disposition: This patient is DNR. I do believe her prognosis is extremely poor. She does have sacral decubitus ulcer that probably is between stage III and IV. Wound Care is on board. We will continue with the same management for now. Infectious Disease treated this condition because likely it is infected. 9. Infected decubitus ulcer, sacral area, as above. ICU time: 45 minutes. The case has been discussed with nephrology department which agrees with the treatment. cc: Erickson Hayes MD MTDD
[2018-08-04] MEDS: LEVOPHED 8 MG in D5 1/2 NS 250 ML IV SCH (12:40)
--- NOTE | 2018-08-04 13:48 | OPERATIVE NOTE ---
PROCEDURE DATE: 08/04/2018 DATE AND TIME: Date 08/04/2018, 10:45 in the morning. PROCEDURE: I have been asked to place a central venous line for IV access. PROCEDURE DETAILS: The left groin was prepped and draped in a sterile fashion. We imaged the left common femoral vein and found it to be patent. We made a small stab incision and accessed the left common femoral vein without difficulty. We passed the guidewire without difficulty. We dilated the tract and then passed the triple-lumen catheter to the extent that it would go. Blood came back in each lumen spontaneously. We then flushed each lumen with saline. We secured the flange to the skin with silk contained within the tray. A Biostep patch was placed at the exit site and a sterile OpSite dressing was applied. She tolerated it well. cc: Mark Hubbard MD
[2018-08-04 14:55] LABS: AGAP 21; BUN 19 mg/dL (8-22); CALCIUM 8.6 mg/dL (8.8-10.2); CHLORIDE 105 mmol/L (98-107); COSMO 294; ESTIMATED GFR > 60; GLUCOSE 145 mg/dL (70-104); PHOSPHORUS 2.1 mg/dL (2.7-4.5); POTASSIUM 3.8 mmol/L (3.5-5.1); SODIUM 145 mmol/L (136-145); TCO2 19 mmol/L (25-35)
--- NOTE | 2018-08-04 14:55 | NEPHROLOGY PROGRESS NOTE ---
DATE: 08/04/2018 SUBJECTIVE: She was moved to the ICU because of DKA. She has shortness of breath and evidence of volume overload. OBJECTIVE: Vital Signs: Blood pressure 90/45, heart rate 79, respirations 16. Intake 1.8 L. Output 3 L. General: Unresponsive. Skin: Warm and dry. Neck: Neck veins are distended. Cardiovascular: Heart is regular and tachycardic, with a murmur. Lungs: Have equal breath sounds with rhonchi. Abdomen: Soft, nontender. Diminished bowel sounds. Extremities: Have 2+ edema. No clubbing or cyanosis. IMPRESSION: Chronic kidney disease 5D with volume overload. Continue SLED today, to target 3 to 4 L ultrafiltration as blood pressure allows. Her anion gap is improved on insulin drip. She is on empiric broad-spectrum antibiotics. Continue current care. Norepinephrine as needed for blood pressure. cc: Gera Roberts MD
[2018-08-04] MEDS: TYLENOL PO PRN ×2 (15:47→23:19)
[2018-08-04 18:15] LABS: AGAP 16; BUN 13 mg/dL (8-22); CALCIUM 8.3 mg/dL (8.8-10.2); CHLORIDE 103 mmol/L (98-107); COSMO 280; CREATININE 0.8 mg/dL (0.5-0.9); ESTIMATED GFR > 60; GLUCOSE 105 mg/dL (70-104); PHOSPHORUS 1.2 mg/dL (2.7-4.5); POTASSIUM 3.7 mmol/L (3.5-5.1); SODIUM 140 mmol/L (136-145); TCO2 21 mmol/L (25-35)
[2018-08-04 23:40] LABS: AGAP 14; BUN 16 mg/dL (8-22); CALCIUM 8.4 mg/dL (8.8-10.2); CHLORIDE 105 mmol/L (98-107); COSMO 282; CREATININE 0.8 mg/dL (0.5-0.9); ESTIMATED GFR > 60; GLUCOSE 118 mg/dL (70-104); PHOSPHORUS 1.4 mg/dL (2.7-4.5); POTASSIUM 3.9 mmol/L (3.5-5.1); SODIUM 140 mmol/L (136-145); TCO2 21 mmol/L (25-35)
[2018-08-05 03:01] LABS: AGAP 12; BUN 18 mg/dL (8-22); CALCIUM 8.2 mg/dL (8.8-10.2); CHLORIDE 106 mmol/L (98-107); COSMO 285; CREATININE 0.9 mg/dL (0.5-0.9); ESTIMATED GFR > 60; GLUCOSE 133 mg/dL (70-104); PHOSPHORUS 1.2 mg/dL (2.7-4.5); POTASSIUM 3.5 mmol/L (3.5-5.1); SODIUM 141 mmol/L (136-145); TCO2 23 mmol/L (25-35)
[2018-08-05] MEDS: ZOSYN 2.25 GM in NS 50 ML IV SCH (05:47)
[2018-08-05 06:10] LABS: HEMATOCRIT 24.7 % (37.0-47.0); HEMOGLOBIN 7.6 g/dL (12.0-16.0); MCH 28.8 PG (27-31); MCHC 30.8 g/dL (33-37); MCV 93.6 FL (81-99); MPV 11.3 FL (7.4-10.4); RBC 2.64 XMIL (4.2-5.4); RDW 21.8 % (11.5-14.5); WBC 13.07 X1000 (4.8-10.8)
[2018-08-05 06:23] LABS: AGAP 12; ALBUMIN 3.1 g/dL (3.5-5.0); BUN 19 mg/dL (8-22); CALCIUM 8.1 mg/dL (8.8-10.2); CHLORIDE 106 mmol/L (98-107); COSMO 285; CREATININE 0.9 mg/dL (0.5-0.9); ESTIMATED GFR > 60; GLUCOSE 132 mg/dL (70-104); PHOSPHORUS 1.1 mg/dL (2.7-4.5); POTASSIUM 3.5 mmol/L (3.5-5.1); SODIUM 141 mmol/L (136-145); TCO2 23 mmol/L (25-35)
--- NOTE | 2018-08-05 07:42 | PROGRESS NOTE ---
DATE: 08/05/2018 SUBJECTIVE: This patient is lying in bed. She looks a little bit more alert. I do believe she is able to say her name but it is really hard to understand what she says. She is still on pressors. Anion gap and blood sugar level are stable so the insulin drip has been stopped and she will be placed on sliding scale insulin and pattern of blood sugar. I will also increase the tube feed rate. OBJECTIVE: Vital Signs: Temperature 97.7 degrees, pulse 88, respiratory rate 19, blood pressure 91/52, oxygen saturation 100% on 4 L of nasal cannula. HEENT: Head normocephalic. No trauma. PERRLA. Neck: Supple. No JVD. No masses. Central trachea. Chest: Decreased breath sounds bilaterally but mostly at the right base, with some rhonchi and crepitations. Abdomen: Soft, nontender, nondistended. Positive bowel sounds. Extremities: There is 1+ lower extremity edema bilaterally. No clubbing, no cyanosis. Neurological Examination: This patient's examination is limited due to her mental status but she is probably following commands a little bit, but it is not consistent. She is alert on and off. She is opening her eyes spontaneously and she is moving her head spontaneously as well. I do not see any focal deficit but she does have generalized weakness. Laboratory: WBC 13, hemoglobin 7.6, hematocrit 24.7, platelets 82,000. Sodium 141, potassium 3.5, chloride 106, bicarbonate 23, BUN 19, creatinine 0.9, glucose 132, calcium 8.1, magnesium 2, albumin 3.1. ASSESSMENT AND PLAN: 1. Septic shock. A central line had been placed yesterday and we started this patient on pressors. Since then, the blood pressure has been more stable. I removed this patient from the intravenous fluids as much as I can. She received dialysis yesterday and around 2.7 L of fluid has been removed. We will continue with the antibiotics but since Zosyn can cause thrombocytopenia, I will hold it for now. I will contact infectious disease department to see if we can switch the antibiotics. 2. Likely diabetic ketoacidosis. Anion gap closed and blood sugar has been stable. The insulin drip has been stopped. She has been placed on sliding scale insulin and pattern of blood sugar. We will monitor this patient closely. 3. End-stage renal disease and anemia of chronic disease. Continue with dialysis per nephrology department. Yesterday, 2.7 L of fluid had been removed. 4. Severe protein calorie malnutrition. I think that wound healing is going to be a problem on this patient due to her decreased muscle mass and malnutrition. We started this patient on a nasogastric tube. I will increase the rate today of the feeding. 5. Pulmonary hypertension and right pleural effusion. Continue to monitor. I am trying to minimize as much as I can of intravenous fluids. Continue monitoring her respiratory status. 6. Hypothyroidism. Continue with Synthroid. 7. Deep vein thrombosis prophylaxis with heparin. 8. Infected decubitus ulcer at the level of the sacral area. Continue wound care. 9. Disposition. This patient is Do Not Resuscitate. I do believe that her prognosis is poor. She does have a sacral decubitus ulcer of probably stage III and/or IV. Wound care is on board. We will continue with the same management for now. Infectious disease department is treating this condition because likely these this is infected. Wound culture showed Escherichia coli and Proteus mirabilis. CRITICAL CARE TIME: 35 minutes. cc: Erickson Hayes MD
[2018-08-05] MEDS: PROAMATINE PO SCH ×3 (09:07→17:17)
[2018-08-05] MEDS: HEPARIN SUBQ SCH ×2 (09:09→20:22)
[2018-08-05] MEDS: SANTYL OINT TOP SCH (09:09)
[2018-08-05] MEDS: ALBUMIN 25% IV SCH (09:10)
[2018-08-05] MEDS: PROTONIX IV SCH (09:10)
[2018-08-05] MEDS ORDERED: BLISTEX MEDICATED BERRY LIP BALM TOP PRN (10:01)
[2018-08-05] MEDS: HUMULIN R SUBQ SCH ×6 (11:27→20:22)
[2018-08-05] MEDS: LEVOPHED 8 MG in D5 1/2 NS 250 ML IV SCH (11:53)
[2018-08-05 12:01] LABS: AGAP 17; BUN 21 mg/dL (8-22); CALCIUM 8.5 mg/dL (8.8-10.2); CHLORIDE 106 mmol/L (98-107); COSMO 294; ESTIMATED GFR > 60; GLUCOSE 179 mg/dL (70-104); PHOSPHORUS 1.1 mg/dL (2.7-4.5); POTASSIUM 3.7 mmol/L (3.5-5.1); SODIUM 144 mmol/L (136-145); TCO2 21 mmol/L (25-35)
--- NOTE | 2018-08-05 13:16 | INFECTIOUS DISEASE PROGRESS NO ---
DATE: 08/05/2018 PRESENT ILLNESS: Patient is being treated for a large sacral decubitus ulcer which extends to the sacrum with resulting osteomyelitis. The patient has 1 of 2 blood cultures growing a Staphylococcus hominis. This is a contaminant and does not require antibiotic treatment. MEDICATIONS: The patient is on Zosyn as a single agent. PHYSICAL EXAMINATION: Vital Signs: Temperature is 98 degrees, pulse 99, respirations 27, blood pressure 101/62. General: This is an ill-appearing elderly female. She is delirious. Head, Eyes, Ears, Nose, and Throat: No drainage noted from the nose or ears. Neck: No stiffness. The patient has an internal jugular vein dialysis catheter in place. The site is not swollen or draining. Lungs: Clear to auscultation. Cardiovascular: Heart rate is irregular. Abdomen: Soft and nontender. Pelvic: The patient has a dressing on the sacral wound. The patient has a triple-lumen catheter in the left groin area. The site is not draining. Neurologic: Patient appears to be delirious. She did not respond to verbal stimuli. She does not have a tremor. Integumentary: No rash noted. LABORATORY AND X-RAY: Chest x-ray done yesterday shows NG tube is in the distal esophagus or upper stomach. The patient has 1 of 2 blood cultures growing Staphylococcus hominis. This is a contaminant. X-ray shows that her NG tube is in place. The CBC shows a white count of 13,070, hemoglobin 7.6, and platelet count 82,000. Creatinine 0.9. GFR is greater than 60. One of 2 blood cultures is growing Staphylococcus hominis. Culture from the sacral wound grew E. coli and Proteus. 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 The patient is getting local care to her wound. I plan to continue Zosyn. The patient's blood culture positive for Staphylococcus hominis does not require antibiotic treatment because the Staphylococcus hominis is a contaminant and not a pathogen. COMORBIDITIES: The patient is elderly. She is malnourished. She has end-stage renal disease, and she is on hemodialysis. cc: Ward Brennan MD
[2018-08-05 14:49] LABS: AGAP 18; BUN 23 mg/dL (8-22); CALCIUM 8.5 mg/dL (8.8-10.2); CHLORIDE 104 mmol/L (98-107); COSMO 295; ESTIMATED GFR > 60; GLUCOSE 247 mg/dL (70-104); PHOSPHORUS 1.1 mg/dL (2.7-4.5); POTASSIUM 3.7 mmol/L (3.5-5.1); SODIUM 142 mmol/L (136-145); TCO2 20 mmol/L (25-35)
[2018-08-05 18:30] LABS: AGAP 13; BUN 24 mg/dL (8-22); CALCIUM 8.4 mg/dL (8.8-10.2); CHLORIDE 106 mmol/L (98-107); COSMO 294; ESTIMATED GFR > 60; GLUCOSE 224 mg/dL (70-104); MAGNESIUM 1.8 mg/dL (1.5-2.7); PHOSPHORUS 1.1 mg/dL (2.7-4.5); POTASSIUM 3.4 mmol/L (3.5-5.1); SODIUM 142 mmol/L (136-145); TCO2 23 mmol/L (25-35)
[2018-08-05 23:06] LABS: CALCIUM 8.7 mg/dL (8.8-10.2); CREATININE 1.1 mg/dL (0.5-0.9); MAGNESIUM 1.8 mg/dL (1.5-2.7); POTASSIUM 3.1 mmol/L (3.5-5.1)
[2018-08-05 23:09] LABS: PHOSPHORUS 0.9 mg/dL (2.7-4.5)
[2018-08-05] MEDS ORDERED: POTASSIUM PHOSPHATE 15 MMOL in NS 250 ML IV ONE (23:40)
[2018-08-06 05:31] LABS: ALBUMIN 3.2 g/dL (3.5-5.0); CALCIUM 8.7 mg/dL (8.8-10.2); CREATININE 1.2 mg/dL (0.5-0.9); PHOSPHORUS 2.2 mg/dL (2.7-4.5); POTASSIUM 3.8 mmol/L (3.5-5.1)
[2018-08-06 05:37] LABS: HEMATOCRIT 25.4 % (37.0-47.0); HEMOGLOBIN 7.9 g/dL (12.0-16.0); MCHC 31.1 g/dL (33-37); MCV 90.1 FL (81-99); PLT 60 X1000 (130-400); RBC 2.82 XMIL (4.2-5.4); RDW 21.3 % (11.5-14.5); WBC 11.81 X1000 (4.8-10.8)
[2018-08-06] MEDS: HUMULIN R SUBQ SCH ×6 (07:05→21:13)
--- NOTE | 2018-08-06 08:12 | Diag Imaging Result Doc PS360 ---
EXAM: CHEST-1 VIEW HISTORY: assess effusion/pulmonary edema TECHNIQUE: Chest single view COMPARISON: 08/04/2018 FINDINGS: No change in the right-sided catheter. There is a nasogastric tube overlying the esophagus and stomach. Cardiomegaly with pulmonary edema and pleural effusions persist and are fairly similar to the prior study. Slight improved aeration in the left lung. There are sternal wires. IMPRESSION: Slight interval improvement with increased aeration in the left lung. Electronically signed by Travis Machuca 08/06/2018 8:10 AM
[2018-08-06] MEDS ORDERED: FLAGYL NG SCH (09:00)
--- NOTE | 2018-08-06 09:23 | PROGRESS NOTE ---
DATE: 08/06/2018 SUBJECTIVE: Patient is lying in bed. Compared with yesterday, she seems to be more somnolent. I think she is still able to say her name, but it is really hard to understand what she says. Pressors had been stopped a few moments ago, but the blood pressure started dropping again, so we have placed this patient back on pressors. Blood pressure dropped to the 70s with a map in the 50s. Anion gap and blood sugar have been stable. I do believe her wound at the sacral area looks worse. I have requested the Surgery Department to re-evaluate this patient again. OBJECTIVE: Vital Signs: Temperature 96.9, pulse on the monitor right now 96, respiratory rate 24, blood pressure 74/52. Oxygen saturation 100% on 4 L of nasal cannula. HEENT: Head normocephalic. No trauma. PERRLA. Neck: Supple. No JVD. No masses. Central trachea. Chest: Decreased breath sounds bilaterally, mostly at the right base with some rhonchi and crepitus. Abdomen: Soft, nontender, nondistended. Positive bowel sounds. Extremities: 1+ lower extremity edema bilaterally. Her left upper extremity is also edematous 2 to 3+. No clubbing, no cyanosis. Neurological: This patient's examination is limited due to her mental status, but she has been following commands on and off, not today though for me, and I do believe she is able to say her name. She is alert on and off as well. She has been opening her eyes spontaneously. It is hard to say if she has any focal deficits, but she does have generalized weakness. LABORATORY: WBC 11.8, hemoglobin 7.9, hematocrit 25.4, platelets 60,000. Sodium 140, potassium 3.8, chloride 104, bicarbonate 23, BUN 30, creatinine 1.2, glucose 152, calcium 8.7, albumin 3.2. ASSESSMENT AND PLAN: 1. Septic shock. Continue with pressors. Antibiotics per Infectious Disease Department. Likely the septic shock is related to her infected decubitus ulcer at the level of the sacral area. I will continue with the same management. We will stop the Zosyn because of her thrombocytopenia which can be related to this treatment. Infectious Disease Department already working on this. 2. Likely diabetic ketoacidosis, resolved. We will continue with pattern of blood sugar and sliding scale insulin. 3. Infected decubitus ulcer at the level of the sacral area. Continue wound care. I think this is looking worse at this moment. I have requested to the nurse to communicate with Surgery Department to evaluate the patient again. I would like to know what the options are for this wound. 4. End-stage renal disease. Continue with dialysis per Nephrology Department. 5. Anemia of chronic disease, stable. 6. Severe protein calorie malnutrition. I do believe wound healing is going to be a problem in this patient due to her decreased muscle mass and nutrition. I started this patient on Nepro and she has been tolerating that. I will increase the rate 15 to 20 today and I will ask the gardening supervisor to evaluate this patient. 7. Thrombocytopenia. We believe this is secondary to Zosyn, which has been stopped. 8. Hypothyroidism, continue with Synthroid. 9. Pulmonary hypertension and right pleural effusion. Continue to monitor. I have been trying to minimize as much as I can the IV fluids. I will continue monitoring her respiratory status. 10. Deep vein thrombosis prophylaxis with heparin. 11. Disposition. This patient is Do Not Resuscitate level 1. I do believe her prognosis is poor due to her decubitus ulcer, sepsis and comorbidities, including end-stage renal disease and age. I do believe her wound looks a little bit worse and we have not been able to stop the pressors. CRITICAL CARE TIME: 35 minutes. cc: Erickson Hayes MD
--- NOTE | 2018-08-06 09:36 | INFECTIOUS DISEASE PROGRESS NO ---
DATE: 08/06/2018 PRESENT ILLNESS: The patient has a sacral decubitus ulcer which extends to the bone with resulting osteomyelitis. MEDICATIONS: The patient is receiving Zosyn as a single dose. PHYSICAL EXAMINATION: Vital Signs: Temperature is 96.9 degrees, pulse 105, respirations 31, blood pressure 106/68. General: This is an ill-appearing, elderly female. She is delirious. Whenever she is moved, she screams. Head, Eyes, Ears, Nose, and Throat: No drainage is noted from the nose or ears. Neck: No meningismus. She has a right-sided internal jugular vein dialysis catheter in place. The site is not swollen or draining. Lungs: There were scattered rhonchi. Cardiovascular: Heart rate is irregular. Abdomen: Soft and nontender. Pelvic: The patient's dressing from the sacral decubitus ulcer was removed. There is feculent color and odor fluid coming from the wound. There is devitalized tissue in the wound and the bone that was palpable previously is much larger, meaning that the tissues that were covering the bone have cleared. Neurologic: The patient screamed with any movement. She did not talk. She did not follow requests to move her extremities. She did not have a tremor. LAB AND X-RAY: CBC shows a white count of 11,810, hemoglobin 7.9, and platelet count 60,000. Creatinine is 1.2. GFR is 52. Chest x-ray shows improved aeration in the left lung. ASSESSMENT AND PLAN: We are going to continue the local wound care of the ulcer. Dr. Villegas has been consulted to see if there is any surgical procedure that could be done. The patient's platelets have fallen and it may be secondary to Zosyn. I have discontinued Zosyn and put the patient on Keflex and Flagyl, which will be given through the patient's nasogastric tube. COMORBIDITIES: The patient is elderly, malnourished, has end-stage renal disease, and she is on dialysis. cc: Ward Brennan MD
[2018-08-06] MEDS: FLAGYL NG SCH ×3 (09:53→21:13)
[2018-08-06] MEDS: HEPARIN SUBQ SCH ×2 (09:53→21:13)
[2018-08-06] MEDS: KEFLEX PO SCH ×2 (09:53→16:04)
[2018-08-06] MEDS: PROTONIX IV SCH (09:54)
[2018-08-06] MEDS: PROAMATINE PO SCH ×3 (09:54→16:04)
[2018-08-06] MEDS: SANTYL OINT TOP SCH (09:54)
--- NOTE | 2018-08-06 13:02 | NEPHROLOGY PROGRESS NOTE ---
DATE: 08/06/2018 TIME SEEN: 07. SUBJECTIVE: Ms. Henson is resting quietly in bed. She opens her eyes spontaneously, though she does not follow any commands. VITAL SIGNS: Most recent vital signs show temperature 96.6 degrees, blood pressure 81/53, heart rate 85, respirations 15. She is on 2 L nasal cannula. Last recorded saturation 91%. She has had 820 in, continues with tube feeding. She has had zero out. LABORATORY DATA: Sodium 140, potassium 3.8, chloride 104, CO2 23, BUN 30, creatinine 1.2, glucose 152. Anion gap 13, calcium 8.7, phosphorus 2.2, albumin 3.2. White count 11.8 , hemoglobin 7.9, hematocrit 25.4 with a platelet count of 60,000. Her acetone last recorded yesterday was moderate. Blood cultures continue positive. DIAGNOSTIC STUDIES: Chest x-ray ordered this a.m. shows continued improvement on her pleural effusions. PHYSICAL EXAMINATION: General: This is an 87-year-old female. She is resting quietly in bed. She appears chronically ill with no acute distress. Skin: Warm and dry. HEENT: Normocephalic, atraumatic. Conjunctivae pale. Mucous membranes are dry. Neck : Supple. Trachea midline. No JVD. Cardiovascular: She has regular/regular rate and rhythm. She is tachycardic. She does have an S4. Lungs: Shallow inspiratory effort. Clear to auscultation anterior. Remains on oxygen support. Abdomen: Soft, nontender. She has tube feedings continuing in place. Genitourinary: Not inspected. Minimal void with dialysis assist. Extremities : 1+ lower extremity edema. Decubitus to the posterior buttock/sacral area not inspected. ASSESSMENT AND PLAN: 1. Chronic kidney disease stage 5D in context of fluid volume overload. The patient had tolerated dialysis on her last treatment. She has a chest x-ray that shows improvement. She has minimal fluid volume overload today. We will hold on her dialysis and re -evaluate in the a.m. 2. Electrolytes and acid-base balance. These are stable. 3. Anemia. This is low, but acceptable. 4. Septic shock. The patient continues on Levophed. She is on empiric broad- spectrum antibiotics. I would like to thank you for allowing us to follow with this patient. Dictated by MANDI Wilkins for Gera Roberts MD Face to face encounter, data reviewed, discussed with Lizandro Bang on 08/06/18. I agree with the above assessment and plan of care. cc: MANDI Wilkins MD [facility]
[2018-08-07] MEDS: KEFLEX PO SCH ×3 (00:02→17:30)
[2018-08-07] MEDS: LEVOPHED 8 MG in D5 1/2 NS 250 ML IV SCH ×2 (00:24→18:50)
[2018-08-07] MEDS: FLAGYL NG SCH ×3 (06:01→20:29)
[2018-08-07 06:12] LABS: ALBUMIN 3.1 g/dL (3.5-5.0); CALCIUM 8.9 mg/dL (8.8-10.2); CREATININE 1.3 mg/dL (0.5-0.9); PHOSPHORUS 1.4 mg/dL (2.7-4.5); POTASSIUM 3.6 mmol/L (3.5-5.1)
[2018-08-07 06:21] LABS: HEMATOCRIT 25.2 % (37.0-47.0); HEMOGLOBIN 7.9 g/dL (12.0-16.0); MCH 28.3 PG (27-31); MCHC 31.3 g/dL (33-37); MCV 90.3 FL (81-99); MPV 11.2 FL (7.4-10.4); RBC 2.79 XMIL (4.2-5.4); RDW 21.4 % (11.5-14.5); WBC 10.44 X1000 (4.8-10.8)
[2018-08-07] MEDS ORDERED: NS 2,000 ML MISC PRN (06:49)
[2018-08-07 07:13] LABS: MAGNESIUM 1.7 mg/dL (1.5-2.7); PREALBUMIN 7.2 mg/dL (20-40)
[2018-08-07] MEDS: HUMULIN R SUBQ SCH ×4 (07:41→20:28)
--- NOTE | 2018-08-07 08:15 | PROGRESS NOTE ---
DATE: 08/07/2018 SUBJECTIVE: No big changes compared with yesterday. The dose of Levophed has been increased because of her low blood pressure. She seems to be about the same compared with yesterday. It is really hard to say what she says. She is not following commands for me. OBJECTIVE: Vital Signs: Temperature 97, pulse 101, respiratory rate 21, blood pressure 95/69, oxygen saturation 100% on 4 L of nasal cannula. HEENT: Head normocephalic. No trauma. PERRLA. Neck: Supple. No JVD. No masses. Central trachea. Chest: Decreased breath sounds bilaterally, mostly on the right base with some rhonchi and crepitus bilaterally. Abdomen: Soft. Nondistended. Nontender. Positive bowel sounds. Extremities: 1 to 2+ lower extremity edema bilaterally. Left lower extremity is also swollen 3+. No clubbing, no cyanosis. Neurological: This patient is limited due to her mental status. She is not following commands for me today. She is trying to talk, but it is really hard to understand what she says. She is opening her eyes spontaneously when I call her name. LABORATORY: WBC 10.4, hemoglobin 7.9, hematocrit 25.2, platelets 58. Sodium 140, potassium 3.6, chloride 104, bicarbonate 23, BUN 44, creatinine 1.3, glucose 175, calcium 8.9. Magnesium 1.7. Albumin 3.1. ASSESSMENT AND PLAN: 1. Septic shock, likely the source of infection is the sacral area/ulcer. Antibiotics per Infectious Disease Department. We will continue with the same treatment. Surgery on board. 2. Likely diabetic ketoacidosis, resolved. Continue with pattern blood sugar and sliding scale insulin. 3. Infected decubitus ulcer at the level of the sacral area. Continue with wound care. Surgery on board. The problem is that every time this patient has a bowel movement, the wound gets dirty. That happened during the night, and the whole dressing was changed. 4. End-stage renal disease. She will get dialysis today. 5. Anemia of chronic disease. Stable. 6. Thrombocytopenia. Probably this was secondary to Zosyn which has been discontinued. 7. Severe protein calorie malnutrition. We have increased the rate of the tube feeding to 30 and she is tolerating that. 8. Hypothyroidism continue with Synthroid. 9. Pulmonary hypertension and right pleural effusion. Continue with the same management. We are trying to minimize as much as we can IV fluids. Continue with dialysis. 10. Deep vein thrombosis prophylaxis with heparin. DO NOT RESUSCITATE STATUS: She is Do Not Resuscitate level 1. PROGNOSIS: Overall, this patient has poor prognosis. We will continue with the same management. CRITICAL CARE TIME: 35 minutes. cc: Erickson Hayes MD
--- NOTE | 2018-08-07 08:23 | INFECTIOUS DISEASE PROGRESS NO ---
DATE: 08/07/2018 SUBJECTIVE: The patient has an infected deep sacral decubitus ulcer with an associated osteomyelitis of the sacrum. MEDICATIONS: The patient is receiving Keflex and Flagyl. OBJECTIVE: Vital Signs: Temperature is 97.8 degrees, pulse 101, respirations 21, blood pressure 95/69. General: This is an ill-appearing, elderly female. She is delirious. There is no drainage coming from her nose or ears. I did not see any white patches in her mouth. Neck: She has a right-sided tunneled dialysis catheter in the jugular vein. Lungs: Clear to auscultation. Cardiovascular: Heart rate is irregular. Abdomen: Soft and nontender. Pelvic: Yesterday, I did see the patient's wound. Today, the nurse said that the dressing is intact. Neurologic: The patient is in a delirium. She did not respond to verbal stimuli. She rarely moved in bed. When she was touched or turned on the side, she screams. LAB AND X-RAY: CBC today shows a white count of 10,440, hemoglobin 7.9, and platelet count 58,000. Creatinine is 1.3. GFR is 47. ASSESSMENT AND PLAN: Patient has an infected sacral decubitus ulcer. I plan on continuing with Keflex and Flagyl. The patient is getting local care to her wound also. COMORBIDITIES: The patient is elderly and malnourished. She has end-stage renal disease, and she is on hemodialysis. cc: Ward Brennan MD
[2018-08-07] MEDS: PROAMATINE PO SCH ×3 (09:24→17:29)
[2018-08-07] MEDS: HEPARIN SUBQ SCH ×2 (09:24→20:29)
[2018-08-07] MEDS: PROTONIX IV SCH (09:24)
[2018-08-07] MEDS: SANTYL OINT TOP SCH (11:57)
--- NOTE | 2018-08-07 12:02 | GENERAL SURGERY PROGRESS NOTE ---
DATE: 08/07/2018 Reviewed the wound with Chapis Talavera with Wound Care. The patient has a sacral wound. It is now with exposed sacrum (stage 4 pressure ulcer) with likely osteomyelitis. There is a significant amount of slough. The patient was getting dialysis during the time of the evaluation and her blood pressure is very labile, even during the dialysis itself. Rolling her just to evaluate the wound made her blood pressure go down. I do not suspect the patient is a candidate for any kind of further debridement because I think any kind of further debridement would need to be done in the operating room given the extent of the slough and tissue. I do not think the patient is a good candidate for any kind of aggressive wound care besides what we are doing with wet-to-dry with Vashe and Santyl. The patient would not benefit at this point from diverting colostomy because I do not think she would tolerate the surgical intervention and I am not sure if she is getting a significant amount of fecal contamination in the wound. Therefore, at this point, I think this wound needs to be treated as we are treating it with a wet-to-dry dressing changes. Overall prognosis is poor. We will continue to follow her. cc: MD YANIV Copeland
--- NOTE | 2018-08-07 12:25 | NEPHROLOGY PROGRESS NOTE ---
DATE: 08/07/2018 TIME SEEN: 0720. SUBJECTIVE: Ms. Henson is resting quietly in bed. Head of the bed is elevated. She appears chronically ill. She does open her eyes randomly, but does not follow commands. OBJECTIVE: Vital Signs: Temperature 97 degrees, blood pressure 100/72, heart rate is 111, her respirations are 20. She remains on 4 L nasal cannula. Last recorded saturation is 93%. She has had 974 in with 0 recorded out. No dialysis yesterday. Labs: Sodium 140, potassium 3.6, chloride 104, CO2 23, BUN 44, creatinine 1.3, glucose 175. Her anion gap is 13 , calcium 8.9, phosphorus 1.4, albumin 3.1. White count 10.44, hemoglobin 7.9, hematocrit 25.2 , with a platelet count of 58,000. PHYSICAL EXAMINATION: General: This is an 87-year-old, elderly, female resting quietly in bed. She appears chronically ill, no acute distress. Skin: Warm and dry. HEENT: Normocephalic, atraumatic. Conjunctivae pale pink. She has ANU. Mucous membranes dry. Neck: Supple. Trachea midline. She has positive JVD at the 6 mm thalia. Cardiovascular: Irregularly irregular rate and rhythm. She has an S4 present. Tachycardic on the monitor. Lungs: Clear to auscultation anteriorly. Equal excursion. Poor inspiratory effort. Abdomen: Large, round, soft, nontender. Positive bowel sounds. Tube feedings continue at continuous feedings. Genitourinary: Not inspected. Minimal void with dialysis assist. Extremities : Have trace to 1+ lower extremity edema up into the mid hip region. Neurological: As mentioned above. ASSESSMENT AND PLAN: 1. Chronic kidney disease stage 5D in the context of fluid volume overload. We will plan for dialysis today. She had improvement on her chest x-ray yesterday, trace JVD today. We will place her on SLED. She is to be on a 4 K bath. We will dialyze for 8 hours , 27 bicarb. We will attempt to pull 3 L of ultrafiltration as tolerated. 2. Electrolytes, acid-base balance with correction on dialysis. 3. Anemia. This remains low but stable. 4. Septic shock. Patient continues on Levophed with empiric broad-spectrum antibiotics. I would like to thank you for allowing us to follow with this patient. Dictated by MANDI Wilkins for Gera Roberts MD Face to face encounter, data reviewed, discussed with Lizandro Bang on 08/07/18. I agree with the above assessment and plan of care. cc: MANDI Wilkins MD [facility]
[2018-08-07] MEDS ORDERED: CARDIZEM IV ONE (15:27)
--- NOTE | 2018-08-07 20:18 | Diag Imaging Result Doc PS360 ---
EXAM: CHEST/ABD TUBE PLACEMENT HISTORY: Verify NGT placement TECHNIQUE: Chest abdomen single view COMPARISON: 08/06/2018 FINDINGS: The nasogastric tube overlies the esophagus and stomach. Severe atherosclerosis. No bowel obstruction. No organomegaly. IMPRESSION: Nasogastric tube in good position. Electronically signed by Travis Machuca 08/07/2018 8:15 PM
[2018-08-08] MEDS: KEFLEX PO SCH ×3 (01:40→17:10)
[2018-08-08] MEDS: LEVOPHED 8 MG in D5 1/2 NS 250 ML IV SCH ×2 (02:56→14:56)
[2018-08-08] MEDS: FLAGYL NG SCH ×3 (04:28→20:47)
[2018-08-08] MEDS: HUMULIN R SUBQ SCH ×4 (06:05→20:47)
[2018-08-08 06:42] LABS: BASO# 0.01 X1000 (0.0-0.2); BASO% 0.1 % (0.0-0.8); EOS# 0.02 X1000 (0.0-0.7); EOS% 0.2 % (0.0-10.0); HEMATOCRIT 24.5 % (37.0-47.0); HEMOGLOBIN 7.7 g/dL (12.0-16.0); LYMPH# 0.52 X1000 (1.2-3.4); LYMPH% 4.3 % (20.5-51.1); MCH 28.8 PG (27-31); MCHC 31.4 g/dL (33-37); MCV 91.8 FL (81-99); MONO# 0.31 X1000 (0.11-0.59); MONO% 2.6 % (1.7-9.3); MPV 9.9 FL (7.4-10.4); NEUT# 11.27 X1000 (1.4-6.5); NEUT% 92.8 % (42.2-75.2); PLT 58 X1000 (130-400); RBC 2.67 XMIL (4.2-5.4); RDW 22.2 % (11.5-14.5); WBC 12.13 X1000 (4.8-10.8)
[2018-08-08 07:09] LABS: AGAP 10; ALBUMIN 2.9 g/dL (3.5-5.0); BUN 34 mg/dL (8-22); CALCIUM 8.6 mg/dL (8.8-10.2); CHLORIDE 105 mmol/L (98-107); COSMO 293; ESTIMATED GFR > 60; GLUCOSE 310 mg/dL (70-104); SODIUM 137 mmol/L (136-145); TCO2 22 mmol/L (25-35)
[2018-08-08] MEDS ORDERED: SODIUM PHOSPHATE 30 MMOL in NS 250 ML IV ONE (07:19)
--- NOTE | 2018-08-08 07:43 | Diag Imaging Result Doc PS360 ---
EXAM: CHEST-PORTABLE 08/08/2018 HISTORY: Respiratory failure TECHNIQUE: AP portable at 0733 COMMENT: There are bilateral pleural effusions. There is cardiomegaly. There is bibasilar atelectasis versus pneumonia. Compared to 08/06/2018 there may be slightly worsened pulmonary edema in the left lower lobe. IMPRESSION: Worsened pulmonary edema versus pneumonia on the left. Otherwise stable since 08/06/2018. Electronically signed by Jemal Poe 08/08/2018 7:40 AM
[2018-08-08 07:58] LABS: BE -5.3 mmoll (-3.0-3.0); BLOOD TYPE ARTERIAL; HCO3-(ACT) 20.8 mmoll (20.0-26.0); METHB 1.4 % (0.0-1.5); O2(CT) 13.9 mL/dL (15.0-23.0); O2HB 94.6 % (95.0-99.0); PCO2(98.6) 37 mmHg (35-45); PO2(98.6) 124 mmHg (60-100); SAMPLE BLOOD; SAO2 95.9 % (95.0-100.0); THB 10.3 g/dL (11.5-17.4); pH(98.6) 7.34 (7.35-7.45)
[2018-08-08 08:00] LABS: ALLEN TEST YES; MODALITY BI PAP
--- NOTE | 2018-08-08 08:21 | PROGRESS NOTE ---
DATE: 08/08/2018 SUBJECTIVE: This patient started having oxygen desaturation during the night. She is placed on a BiPAP now. Also, during dialysis yesterday, she started having tachycardia and atrial fibrillation with RVR that got better after receiving diltiazem x1. She is still having some elevated heart rate, mostly in the 100s. Her prognosis is extremely poor due to her current condition, comorbidities and age. This has been explained in the past to her son, who is the power of title attorney. He accepted to put this patient DNR level 1, but he wants to continue with the treatment. Since she is having hypoxemic respiratory failure, I will consult Pulmonary Department, but I do not think we can do too much for this patient. OBJECTIVE: Vital Signs: Temperature 97.2 degrees, pulse 119, respiratory rate 23, blood pressure 102/66, oxygen saturation 100% on the BiPAP machine. HEENT: Normocephalic. No trauma. Her left pupil is not reacting to light. Neck: Supple. No JVD. No masses. Central trachea. Chest: Decreased breath sounds bilaterally, mostly in the right base, with some rhonchi and crepitus bilaterally as well. Abdomen: Soft, nondistended. Positive bowel sounds. Extremities: 2+ lower extremity edema. Her left upper extremity is also swollen 3+. No clubbing, no cyanosis. Neurological: Examination is limited due to her mental status. She is not following commands for me. She is moaning. Sometimes she tries to open her eyes spontaneously. LABORATORY DATA: WBC 12.1, hemoglobin 7.7, hematocrit 24.5, platelets 58,000. Sodium 137, potassium 4, chloride 105, bicarbonate 22, BUN 34, creatinine 1, glucose 310, calcium 8.6. Albumin 2.9. ASSESSMENT AND PLAN: 1. Septic shock, likely due to pneumonia and an infected stage IV sacral ulcer. Continue with antibiotics per Infectious Disease Department. She is still on pressors. Surgery on board. She is not a candidate for any kind of procedure at this moment. 2. Hypoxemic respiratory failure. I will ask for arterial blood gases. She has been placed on the BiPAP machine. She was using 4 L of oxygen by nasal cannula, but during the night she decompensated. I think she was placed on a nonrebreathing mask and Ventimask , and then they decided to put this patient on the BiPAP machine. I will place a consult for the Pulmonary Department, but I do believe there is not too much treatment that we can provide all other than this. 3. Likely diabetic ketoacidosis, resolved. Continue patterning blood sugar and sliding scale insulin. 4. Infected decubitus ulcer of sacral area, stage IV, with osteomyelitis. As per Surgery, there is bone exposure. She is not a candidate for debridement. They will continue with wound care at the bedside. 5. End-stage renal disease. Continue with dialysis as per Nephrology Department. 6. Anemia of chronic disease. Stable. 7. Thrombocytopenia, probably secondary to treatment with Zosyn. This has been discontinued and the platelet count has been about the same for the past couple of days. 8. Severe protein-calorie malnutrition. Continue with tube feeding 10. Pleural effusion. It looks like this is getting worse. There is also a possibility of pneumonia. Continue with treatment. 11. Possible pneumonia. She has been placed on antibiotics. We will continue to monitor. 12. Deep vein thrombosis prophylaxis with heparin. 13. Do Not Resuscitate status level 1. 14. Prognosis extremely poor. Her son, which is the power of title attorney, placed this patient Do Not Resuscitate, but he was he wants to continue with full treatment. CRITICAL CARE TIME: 35 minutes. cc: Erickson Hayes MD MTDD
[2018-08-08] MEDS: SANTYL OINT TOP SCH (08:58)
[2018-08-08] MEDS: HEPARIN SUBQ SCH ×2 (08:58→20:46)
[2018-08-08] MEDS: PROAMATINE PO SCH ×3 (08:59→17:10)
[2018-08-08] MEDS: SODIUM CHLORIDE 0.9% INJ PRN (09:00)
[2018-08-08] MEDS: PROTONIX IV SCH (09:00)
--- NOTE | 2018-08-08 09:45 | NEPHROLOGY PROGRESS NOTE ---
DATE: 08/08/2018 TIME SEEN: 0730. SUBJECTIVE: Ms. Henson is resting quietly in bed. She does moan, though she does not open her eyes to verbal stimuli. She is now on a BiPAP mask. OBJECTIVE: Vital Signs: Her most recent vital signs, her temperature is 97.2 degrees, blood pressure 116/64, heart rate 137, respirations 20. She is on 50% BiPAP. Last recorded saturation 100%. She has had 2082 in and 2254 out to dialysis. Laboratory Data: Sodium 137, potassium 4, chloride is 105, CO2 22, BUN 34, creatinine 1, glucose 310, anion gap of 10, calcium 8.6, albumin 2.9. White count 12.13, hemoglobin 7.7, hematocrit 24.5, with a platelet count of 58,000. Chest x-ray has been done this a.m. It has not been interpreted yet at the time recording. Physical Examination: General: This is an 87-year-old, female. She is resting quietly in bed. Head of the bed is elevated. She is in no acute distress. Skin: Warm and dry. HEENT: Normocephalic, atraumatic. Conjunctivae are pale. She has NAU. Mucous membranes are dry. Neck: Supple. Trachea midline. Unable to determine JVD in the upright position with BiPAP mask. Cardiovascular: She has an irregular rate and rhythm. S4 is present. She is tachycardic on the monitor. Lungs: Diminished inspiratory effort. Remains on O2 support. Clear to auscultation to the upper lobes. Abdomen: Large, round, soft, nontender. Positive bowel sounds. Tube feedings continue in place. Genitourinary: Not inspected. Minimal void with dialysis assist. Extremities: Have trace to 1+ lower extremity edema, mostly into the hip region. Neurological: As mentioned above. ASSESSMENT AND PLAN: 1. Chronic kidney disease stage 5D in the context of fluid volume overload. The patient had a chest x-ray this morning. She is now on a BiPAP mask secondary to desaturation. She is mostly unresponsive except for moaning without any tactile stimuli. No indications for intervention with dialysis today. We will plan for dialysis in the morning. 2. Electrolytes, acid-base balance. Again with planned dialysis correction. 3. Anemia. This remains low but stable. 4. Septic shock. Patient remains on Levophed with empiric broad-spectrum antibiotics. 5. Respiratory distress. She is now on BiPAP. Chest x-ray pending. I would like to thank you for allowing us to follow with this patient. Dictated by MANDI Wilkins for Gera Roberts MD Face to face encounter, data reviewed, discussed with Lizandro Bang on 08/08/17. I agree with the above assessment and plan of care. cc: MANDI Wilkins MD [facility]
--- NOTE | 2018-08-08 09:58 | PULMONOLOGY CONSULTATION ---
DATE: 08/08/2018 REQUESTING PHYSICIAN: Dr. Flores. REASON FOR CONSULTATION: Respiratory failure. HISTORY OF PRESENT ILLNESS: Ms. Henson is an 87-year-old, black female, a alf resident, with end-stage renal disease, stage IV sacral decubitus with bone exposure, rectal prolapse, and recurrent UTIs who has had multiple admissions over the last year. The patient presented to the emergency room on 08/01/2018 with decreased mental status, tachycardia, decreased p.o. intake. End of life discussions have been pursued by the hospitalist and the commercial credit portfolio manager. Family is not willing to pursue a palliative measures course and ongoing dialysis has been requested by the family. They do not want her to be on life support and have requested no intubation or cardioversion/chest compressions. The patient's oxygen requirements have increased during this hospital stay, along with increasing work of breathing. She is now on a BiPAP. PAST MEDICAL HISTORY/PROBLEM LIST: 1. End-stage renal disease, on hemodialysis. 2. Stage IV sacral decubitus with osteomyelitis. 3. History of E. coli urinary tract infections. 4. Cardiomyopathy. 5. Pulmonary hypertension. 6. Chronic atrial fibrillation. 7. Severe protein calorie malnutrition. 8. Coronary artery disease, status post bypass grafting. 9. Status post cholecystectomy. SOCIAL HISTORY: Patient currently lives in a alf. She does not use alcohol or tobacco. REVIEW OF SYSTEMS: Cannot be obtained. PHYSICAL EXAMINATION: General: Reveals a frail, black female who does not answer questions. She intermittently softly moans while on BiPAP. Vital Signs: BP 100/71, heart rate 107, respiration rate 18, oxygen saturation 100%. HEENT: Pupils are equal and reactive. Oropharynx evaluation is limited. Neck: Supple. Chest: Reveals decreased breath sounds in the left base with faint crackles bilaterally. Cardiac Examination: S1 and S2. Abdomen: Soft. Extremities: Reveal trace edema. Skin: The patient has dressings on the large sacral decubitus which were not removed but notes of the surgeon were reviewed by this practitioner. LABORATORIES: White blood count 12.1, hemoglobin 7.7, platelet count 58,000. Sodium 137, potassium 4.0, chloride 105, bicarbonate 22, BUN 34, creatinine 1.0. Arterial blood gas on BiPAP, pH 7.34, pCO2 of 37, PO2 of 124. Chest x-ray reveals cardiomegaly, bilateral pleural effusions, with atelectasis right greater than the left base. IMPRESSION: An 87-year-old with end-stage renal disease, bilateral effusions with possible pneumonia, poor cough effort, with acute hypoxemic respiratory failure. Patient's prognosis is extremely poor. Family has been reluctant to withdraw care as per discussion with Dr. Roberts. RECOMMENDATIONS: 1. Continue to cycle BiPAP for hypoxemic respiratory failure and for comfort. 2. Continue bronchial hygiene. 3. Continue antibiotics per infectious disease. 4. Ongoing end of life discussions with the family. Patient's prognosis is extremely poor. cc: Donis Goncalves MD
--- NOTE | 2018-08-08 10:48 | INFECTIOUS DISEASE PROGRESS NO ---
DATE: 08/08/2018 PRESENT ILLNESS: The patient has an infected deep sacral wound with an associated osteomyelitis of the sacrum. MEDICATIONS: This is the second day of treatment with p.o. Flagyl and Keflex. PHYSICAL EXAMINATION: Vital Signs: Temperature is 97.8 degrees, pulse 118, respirations 23, blood pressure 102/66. General: This is an ill-appearing and malnourished-appearing, elderly female. She is in a delirium. With any movement of the patient, she screams out. Head/eyes/ears/nose/throat: There is no drainage from the nose or ears. Neck: No stiffness. The patient does have a right-sided internal jugular vein dialysis catheter. Lungs: Clear to auscultation. Cardiovascular: Heart rate is irregular. Abdomen: Soft and nontender. Pelvic exam: The sacral dressing was removed. There is a sacral bone visible and palpable. There is purulent, foul smelling drainage coming from the wound. There is also a lot of devitalized tissue. Neurologic: The patient is in a delirium. She does not respond to verbal stimuli. When she is turned on her side, she does scream. LABORATORY AND X-RAY: CBC today shows a white count of 12,130, hemoglobin is 7.7, platelet count is 58,000. Arterial blood gases, show a pH of 7.34, PO2 of 124, pCO2 of 37, creatinine is 1. GFR is greater than 60. ASSESSMENT AND PLAN: 1. Patient has an infected sacral decubitus ulcer with involvement of the sacrum. For now, I am going to continue with Keflex and Flagyl pending the results of the culture I took from the patient's purulent drainage coming from her sacrum ulcer today. 2. Comorbidities: The patient is elderly and malnourished. She has end-stage renal disease and she is on hemodialysis. cc: Ward Brennan MD
[2018-08-09] MEDS: LEVOPHED 8 MG in D5 1/2 NS 250 ML IV SCH ×4 (00:05→20:30)
[2018-08-09] MEDS: KEFLEX PO SCH ×3 (00:20→17:47)
[2018-08-09] MEDS: FLAGYL NG SCH ×3 (04:31→20:24)
[2018-08-09 04:33] LABS: ALLEN TEST YES; BE -3.8 mmoll (-3.0-3.0); BLOOD TYPE ARTERIAL; HCO3-(ACT) 21.9 mmoll (20.0-26.0); METHB 0.7 % (0.0-1.5); O2HB 95.3 % (95.0-99.0); PCO2(98.6) 34 mmHg (35-45); PO2(98.6) 101 mmHg (60-100); SAMPLE BLOOD; SAO2 96.8 % (95.0-100.0); THB 9.6 g/dL (11.5-17.4); pH(98.6) 7.39 (7.35-7.45)
[2018-08-09 04:35] LABS: MODALITY BI PAP
[2018-08-09 05:07] LABS: BASO# 0.03 X1000 (0.0-0.2); BASO% 0.2 % (0.0-0.8); EOS# 0.05 X1000 (0.0-0.7); EOS% 0.4 % (0.0-10.0); HEMATOCRIT 25.3 % (37.0-47.0); IMM GRAN# 0.24 X1000 (0.0-0.04); IMM GRAN% 1.8 % (0.0-0.5); LYMPH# 0.92 X1000 (1.2-3.4); MCHC 31.6 g/dL (33-37); MCV 88.5 FL (81-99); MONO# 0.46 X1000 (0.11-0.59); MONO% 3.5 % (1.7-9.3); NEUT% 87.1 % (42.2-75.2); PLT 72 X1000 (130-400); RBC 2.86 XMIL (4.2-5.4)
[2018-08-09 05:33] LABS: ALBUMIN 2.7 g/dL (3.5-5.0); CALCIUM 8.7 mg/dL (8.8-10.2); CREATININE 1.2 mg/dL (0.5-0.9); PHOSPHORUS 1.7 mg/dL (2.7-4.5); POTASSIUM 4.1 mmol/L (3.5-5.1); TOTAL BILIRUBIN 0.78 mg/dL (0.20-1.00); TOTAL PROTEIN 5.5 g/dL (6.3-8.3)
[2018-08-09 05:50] LABS: SEGS 98 % (42-75)
[2018-08-09] MEDS: SYNTHROID IV SCH (06:15)
[2018-08-09] MEDS: SODIUM CHLORIDE 0.9% INJ PRN ×2 (06:15→08:16)
[2018-08-09] MEDS: HUMULIN R SUBQ SCH ×4 (06:15→20:27)
[2018-08-09] MEDS ORDERED: NS 2,000 ML MISC PRN (06:40)
--- NOTE | 2018-08-09 07:14 | Diag Imaging Result Doc PS360 ---
EXAM: CHEST-PORTABLE 08/09/2018 HISTORY: dyspnea TECHNIQUE: AP portable at 0519 COMMENT: There is a pleural effusion on the left. There is an NG tube with its tip below the diaphragm. There is cardiomegaly. There is a double-lumen catheter in the right internal jugular with its tip in the right atrium. There has been improvement in the pleural effusion on the right since the previous study of 08/08/2018. Otherwise the appearance the chest has not changed significantly. IMPRESSION: Improved right pleural effusion. Electronically signed by Jemal Poe 08/09/2018 7:11 AM
[2018-08-09] MEDS ORDERED: HUMULIN R SUBQ ONE (07:18)
[2018-08-09] MEDS ORDERED: INSULIN PEN NEEDLES ONE (08:13)
[2018-08-09] MEDS: PROAMATINE PO SCH ×3 (08:16→17:47)
[2018-08-09] MEDS: HEPARIN SUBQ SCH ×2 (08:16→20:24)
[2018-08-09] MEDS: PROTONIX IV SCH (08:16)
[2018-08-09] MEDS: SANTYL OINT TOP SCH (08:17)
--- NOTE | 2018-08-09 08:45 | PROGRESS NOTE ---
DATE: 08/09/2018 SUBJECTIVE: This patient is using now a Ventimask and the oxygen saturation has been stable. Blood sugar has been elevated. She received more than more than 20 units of sliding scale insulin yesterday. I will go ahead and add a long-acting insulin at this moment. I will start with Lantus 15, and I will continue with sliding scale insulin and pattern of blood sugar. Prognosis is still extremely poor due to her current condition, comorbidities, and age. OBJECTIVE: Vital Signs: Temperature 97.7 degrees, pulse 103, respiratory rate 19, blood pressure 88/67, oxygen saturation 96% on a Venturi mask. HEENT: Head normocephalic. No trauma. Her left pupil is sluggish to the light. Neck: Supple. No JVD. Central trachea. Chest: Decreased breath sounds bilaterally, mostly in the right base, with some rhonchi and crepitus bilaterally as well. Abdomen: Soft. Nontender. Positive bowel sounds. Extremities: There is 2+ lower extremity edema. Her left upper extremity edema is a little bit better compared with yesterday. It is around 2+, pitting edema as well. No clubbing. No cyanosis. Neurological Examination: Limited due to her mental status. She is not following commands for me today or answering any questions. Laboratory: WBC 13.1, hemoglobin 8, hematocrit 25.3, platelets 72,000. Sodium 139, potassium 4.1, chloride 105, bicarbonate 19, BUN 46, creatinine 1.2, glucose 313, calcium 8.7, phosphorus 1.7, albumin 2.7. ASSESSMENT AND PLAN: 1. Septic shock, likely due to pneumonia and an infected stage IV sacral ulcer. Continue antibiotics per infectious disease department. Continue with the same management in the intensive care unit. She is not a candidate for any kind of invasive procedure like surgery at this time. 2. Hypoxemic respiratory failure. Pulmonary department on board. She is not on the BiPAP machine at this moment. She is on a Ventimask and the oxygen saturation has been stable. X- ray showed an improved right pleural effusion. We will continue with the same management. 3. Recent diabetic ketoacidosis, resolved. We will continue with pattern of blood sugar and sliding scale insulin. Lately, her blood sugar has been trending up so I will start this patient on a long-acting insulin. Probably, this is related to her tube feeds. I will start with Lantus 15 mg in the morning. I will monitor the blood sugar during the day. 4. Infected decubitus ulcer stage IV, sacral area, with osteomyelitis. As per surgery, there is bone exposure. She is not a candidate for debridement. They will continue wound care at the bedside. 5. End-stage renal disease. Continue with dialysis per nephrology department. 6. Anemia of chronic disease. Stable. 7. Thrombocytopenia, probably secondary to medical treatment, Zosyn. This has been discontinued a few days ago and the platelet count today looks better compared with yesterday. 8. Severe protein calorie malnutrition. Continue with tube feeding. 9. Pleural effusion. It looks better on the x-ray today. 10. Possible pneumonia. Continue with antibiotics. 11. Deep venous thrombosis prophylaxis with heparin. 12. Resuscitation status. She is Do Not Resuscitate status level 1. 13. Prognosis extremely poor. Her son, which has the power of admitted attorneys, placed this patient Do Not Resuscitate but he wants to continue with full treatment. CRITICAL CARE TIME: 35 minutes. cc: Erickson Hayes MD
[2018-08-09] MEDS ORDERED: BASAGLAR SUBQ SCH (09:00)
--- NOTE | 2018-08-09 10:04 | PULMONOLOGY PROGRESS NOTE ---
DATE: 08/09/2018 SUBJECTIVE: The patient currently is off BiPAP. She has no increased work of breathing. She is arousable but speech is difficult to understand. OBJECTIVE: BP 88/67. Heart rate 113. Respiratory rate 12. Oxygen saturation 100% on nasal cannula. HEENT: Pupils are equal and reactive. Oropharynx is clear. Neck is supple. Chest reveals shallow breath sounds bilaterally. Cardiac exam S1-S2. Abdomen is soft. Extremities without edema. LABORATORIES: White blood count 13.1, hemoglobin 8.0, platelet count 72,000. Arterial blood gas: pH 7.39, pCO2 of 34, PO2 of 101. Chest x-ray reveals decreased effusion at the right base. IMPRESSION: An 87-year-old with end-stage renal disease, pulmonary effusions which have diminished, poor cough effort. Acute hypoxemic respiratory failure. Advanced sacral decubitus, severe protein calorie malnutrition. Patient's prognosis is extremely poor. RECOMMENDATION: 1. Continue to cycle BiPAP for hypoxemic respiratory failure and for comfort. 2. Continue bronchial hygiene. 3. Continue antibiotics per Infectious Disease. 4. Continue comfort measures. cc: Donis Goncalves MD
[2018-08-09] MEDS ORDERED: ALBUMIN 25% IV ONE (12:00)
--- NOTE | 2018-08-09 14:04 | NEPHROLOGY PROGRESS NOTE ---
DATE: 08/09/2018 TIME SEEN: 0700. SUBJECTIVE: Ms. Henson is resting quietly in bed. She remains on BiPAP at 30% . She does respond in moaning to verbal stimuli though she does not open her eyes or follow any commands. OBJECTIVE: Vital Signs: Temperature 97.7, blood pressure 103/69, heart rate 127 , respirations 18. She is on 30% BiPAP. Last recorded saturation 99%. She has had 2842 in with 0 recorded out. She is currently on tube feedings. LABORATORY DATA: Sodium 139, potassium 4.1, chloride 105, CO2 of 19, BUN 46, creatinine 1.2, glucose 313. Anion gap of 19, calcium 8.7, phosphorus 1.7, albumin 2.7. White count 13.1, hemoglobin 8, hematocrit 25.3 with a platelet count of 72,000. ABGs: pH 7.39, CO2 of 34, PO2 of 101, bicarb 21.9 on 30% BiPAP. PHYSICAL EXAMINATION: General: This is an 87-year-old -[place] female. She is resting quietly in bed. The head of the bed is elevated. She remains on BiPAP support. HEENT: Normocephalic, atraumatic. Conjunctivae pale. She has ANU. Mucous membranes are dry. Neck is supple. Trachea midline. She has positive JVD. Cardiovascular: She has a regular rate and rhythm. She has a soft systolic murmur. Lungs are clear to auscultation to the anterior. She remains on O2 support. Abdomen is soft nontender. Positive bowel sounds. Genitourinary: Not inspected. Minimal void with dialysis assist. Extremities have 3+ edema. She is more swollen to her upper thighs and abdomen then she has been in the last 2 days. Neurological : As above. ASSESSMENT AND PLAN: 1. Chronic kidney disease, stage 5D. Patient is scheduled for dialysis today. We will place her on sustained low-efficiency dialysis. She is to dialyze on a 4 K 8 hours 27 bicarb. We will attempt to pull 3 to 4 L of ultrafiltration as tolerated. We will also give her 50 g of albumin daily x3 days. 2. Electrolytes and acid-base balance, again with correction on dialysis. 3. Anemia. This is low but stable with no indications for intervention. 4. Respiratory distress. Patient remains on BiPAP. She continues to be followed by Pulmonary. I would like to thank you for allowing us to follow with this patient. SLED interrupted because of hypotension and tachycardia. rg Dictated by MANDI Wilkins for Gera Roberts MD Face to face encounter, data reviewed, discussed with Lizandro Bang on 08/09/18. I agree with the above assessment and plan of care. rg cc: MANDI Wilkins MD [facility]
[2018-08-09] MEDS ORDERED: CARDIZEM IV ONE (15:08)
[2018-08-10] MEDS: KEFLEX PO SCH ×2 (01:10→09:10)
[2018-08-10] MEDS: LEVOPHED 8 MG in D5 1/2 NS 250 ML IV SCH ×3 (04:11→20:01)
[2018-08-10 05:09] LABS: ALLEN TEST YES; BE -5.3 mmoll (-3.0-3.0); BLOOD TYPE ARTERIAL; HCO3-(ACT) 20.8 mmoll (20.0-26.0); METHB 0.7 % (0.0-1.5); O2(CT) 12.3 mL/dL (15.0-23.0); O2HB 94.6 % (95.0-99.0); PCO2(98.6) 37 mmHg (35-45); PO2(98.6) 94 mmHg (60-100); SAMPLE BLOOD; SAO2 96.1 % (95.0-100.0); THB 9.1 g/dL (11.5-17.4); pH(98.6) 7.34 (7.35-7.45)
[2018-08-10 05:10] LABS: MODALITY CANNULA
[2018-08-10] MEDS: FLAGYL NG SCH ×2 (05:19→12:35)
[2018-08-10 05:59] LABS: BASO# 0.02 X1000 (0.0-0.2); BASO% 0.1 % (0.0-0.8); EOS# 0.06 X1000 (0.0-0.7); EOS% 0.4 % (0.0-10.0); HEMATOCRIT 23.4 % (37.0-47.0); HEMOGLOBIN 7.2 g/dL (12.0-16.0); IMM GRAN# 0.19 X1000 (0.0-0.04); IMM GRAN% 1.3 % (0.0-0.5); LYMPH# 0.83 X1000 (1.2-3.4); LYMPH% 5.7 % (20.5-51.1); MCHC 30.8 g/dL (33-37); MCV 91.1 FL (81-99); MONO# 0.65 X1000 (0.11-0.59); MONO% 4.5 % (1.7-9.3); PLT 57 X1000 (130-400); RBC 2.57 XMIL (4.2-5.4); RDW 22.7 % (11.5-14.5); WBC 14.45 X1000 (4.8-10.8)
[2018-08-10 06:19] LABS: AGAP 13; ALBUMIN 3.3 g/dL (3.5-5.0); BUN 31 mg/dL (8-22); CALCIUM 8.2 mg/dL (8.8-10.2); CHLORIDE 105 mmol/L (98-107); COSMO 293; CREATININE 0.8 mg/dL (0.5-0.9); ESTIMATED GFR > 60; GLUCOSE 331 mg/dL (70-104); PHOSPHORUS 1.1 mg/dL (2.7-4.5); POTASSIUM 4.5 mmol/L (3.5-5.1); SODIUM 137 mmol/L (136-145); TCO2 19 mmol/L (25-35)
[2018-08-10 06:38] LABS: ANISOCYTOSIS 1+; LYMPHS 4 % (21-51); MONO 3 % (1-9); NRBC 2 % (0-0); SEGS 93 % (42-75)
[2018-08-10] MEDS: HUMULIN R SUBQ SCH ×4 (06:38→22:35)
[2018-08-10] MEDS ORDERED: SODIUM PHOSPHATE 30 MMOL in NS 250 ML IV ONE (07:12)
--- NOTE | 2018-08-10 08:00 | PROGRESS NOTE ---
DATE: 08/10/2018 SUBJECTIVE: This patient seems to be more awake, more alert. She is able to say her name and date of . Yesterday, she was getting dialysis, but it has been stopped because of hypotension and tachycardia. 1.2 L of fluid has been removed. Hemoglobin today 7.2. She is still hyperglycemic. I will increase the dose of her Lantus to 25 and continue with sliding scale insulin and pattern blood sugar. OBJECTIVE: Vital Signs: Temperature 98.7, pulse 116, respiratory rate 28, blood pressure 104/52, oxygen saturation 93 on 4 L of nasal cannula. HEENT: Head normocephalic. No trauma. PERRLA. Neck: Supple. No JVD. Central trachea. Chest: Decreased breath sounds bilaterally, mostly in the right base with some rhonchi and crepitus bilaterally as well. Abdomen: Soft, nontender, nondistended. Positive bowel sounds. Extremities: 2+ lower extremity edema. Also 2 to 3+ left upper extremity edema, no clubbing. No cyanosis. Neurological: The patient is alert. Limited evaluation due to her mental status, but she is able to say her name and date of . She is not following commands. She is not moving her extremities and I do believe it because of her severe weakness. LABORATORY: WBC 14.4, hemoglobin 7.2 hematocrit 23.4, platelets 57. Sodium 137, potassium 4.5, chloride 105, bicarbonate 19, BUN 31, creatinine 0.8, glucose 231, calcium 8.2, phosphorus 1.1. Albumin 3.3. ASSESSMENT AND PLAN: 1. Septic shock, likely due to her infected stage 4 sacral ulcer, possible pneumonia. Continue with antibiotics per Infectious Disease Department. Continue with pressors. She is not a candidate for any kind of surgical procedure at this moment. 2. Hypoxemic respiratory failure. Pulmonary department on board. She seems to be a little bit better. We will continue cycling nasal cannula Ventimask and BiPAP machine. 3. Recent diabetic ketoacidosis, resolved. Continue with sliding scale insulin and pattern blood sugar. I have decreased the dose of Lantus as well. 4. Type 2 diabetes, blood sugar is still elevated so I will increase the dose of Lantus from 15 to 25, and I will monitor this patient closely. 5. Infected decubitus ulcer stage 4. Sacral area with osteomyelitis as per surgery, there is bone exposure. She is not a candidate for debridement or any kind of aggressive invasive procedure at this moment. 6. End-stage renal disease. Continue with dialysis as scheduled, but it looks like she is not tolerating that. 7. Anemia of chronic disease. Stable. 8. Thrombocytopenia, likely secondary to antibiotic treatment. Zosyn has been discontinued. Platelet count decreased a little bit compared with yesterday. 9. Severe protein calorie malnutrition. Continue with tube feeding, she is tolerating that well. 10. Pleural effusion. This is looking better on the x-ray. 11. Possible pneumonia, continue with antibiotics. 12. Deep vein thrombosis prophylaxis with heparin. 13. Resuscitation status. This patient is Do Not Resuscitate level 1. PROGNOSIS: Extremely poor. Her son, which is the power of ip technology transactions attorney placed this patient Do Not Resuscitate, but he wants to continue full treatment. CRITICAL CARE TIME: 35 minutes. cc: Erickson Hayes MD
[2018-08-10] MEDS: SYNTHROID IV SCH (08:14)
[2018-08-10] MEDS ORDERED: BASAGLAR SUBQ SCH (09:00)
[2018-08-10] MEDS: SODIUM CHLORIDE 0.9% INJ PRN (09:10)
[2018-08-10] MEDS: PROAMATINE PO SCH ×3 (09:10→17:44)
[2018-08-10] MEDS: PROTONIX IV SCH (09:10)
[2018-08-10] MEDS: HEPARIN SUBQ SCH ×2 (09:11→22:34)
[2018-08-10] MEDS: SANTYL OINT TOP SCH (09:19)
--- NOTE | 2018-08-10 10:46 | NEPHROLOGY PROGRESS NOTE ---
DATE: 08/10/2018 SUBJECTIVE: Today she is awake and alert. She does answer me with few words. She states that she is "all right." OBJECTIVE: Vital Signs: Blood pressure 110/63, heart rate 114, respirations 27. Intake 3.1 L; output 1.2 L. General: On physical examination, mental status as above. Skin: Warm and dry. HEENT: Conjunctivae are pink. Oropharynx is dry. Neck: Neck veins are not appreciated. Heart: Irregular and tachycardic. Lungs: Have equal breath sounds with rhonchi scattered throughout. Abdomen: Soft, nontender. Bowel sounds present. Extremities: 1+ edema. No clubbing or cyanosis. IMPRESSION: 1. Chronic kidney disease 5 D. While she was in positive fluid balance in the last 24 hours and reportedly 5 L positive since admission, her exam does not demonstrate worsened heart failure. Her chest x-ray on yesterday was improved. 2. Electrolytes, acid-base, etcetera are in target. We will hold dialysis today. cc: Gera Roberts MD
[2018-08-10] MEDS ORDERED: HUMULIN R SUBQ ONE (12:41)
[2018-08-10] MEDS: ZOSYN 2.25 GM in NS 50 ML IV SCH ×2 (17:44→22:35)
--- NOTE | 2018-08-10 18:12 | INFECTIOUS DISEASE PROGRESS NO ---
DATE: 08/10/2018 PRESENT ILLNESS: The patient has an infected deep sacral wound with an associated osteomyelitis of the sacrum. MEDICATIONS: The patient has been on Flagyl and Keflex. PHYSICAL EXAMINATION: Vital signs: Temperature is 98.8, pulse 114, respiratory rate 27 and blood pressure 110/63. General: This is an ill appearing and malnourished appearing elderly female. She has a decreased level of consciousness. HEENT: No drainage is noted from the nose or ears. Neck: No stiffness. Lungs: Clear to auscultation. Cardiovascular: Heart rate is regular. Abdomen: Soft and nontender. Pelvic: The nurse told me that the dressing on the patient's sacral wound is intact. Neurological: The patient has a decreased level of consciousness. She did respond to verbal stimuli. She does not have any tremor. Thorax: The patient has a right- sided upper chest dialysis catheter. The site is not swollen or draining. LABORATORY/XRAY: CBC shows a white count of 14,450, hemoglobin 7.2 and platelet count 57,000. The patient's blood gases show a pH of 7.34, pO2 of 94 and pCO2 of 37. Creatinine 0.8, GFR greater than 60. The repeat culture of the sacral decubitus ulcer is growing proteus and another gram negative josephine. ASSESSMENT AND PLAN: The patient's white count is continuing to rise. I have discontinued Keflex and Flagyl and started the patient on IV Zosyn. I am waiting for the patient's final report from the repeat sacral ulcer that I cultured. She has a worsening sacral decubitus ulcer wound, and her white count is rising. I have ordered two blood cultures and have discontinued Keflex and Flagyl and instead started IV Zosyn. Two blood cultures have been ordered also. COMORBITIES : Elderly, malnourished, end stage renal disease, and dialysis. cc: Ward Brennan MD MTDBar
--- NOTE | 2018-08-10 20:21 | PULMONOLOGY PROGRESS NOTE ---
DATE: 08/10/2018 SUBJECTIVE: The patient has her eyes closed. She does respond to voice. She denies compliance. OBJECTIVE: Vital Signs: The patient is afebrile for the last 24 hours. Blood pressure 110/63, heart rate 114, respiratory rate 27. Oxygen saturation 97% on 4 L per nasal cannula. HEENT: Pupils are equal and reactive. Oropharynx is clear. Neck: Supple. Chest: Reveals diminished breath sounds in the bases. Cardiac exam: S1-S2. Abdomen: Soft. Extremities: Are unchanged. LABORATORIES: Arterial blood gas reveals a pH 7.34, pCO2 of 37, pO2 of 94, on 4 L per nasal cannula. White blood count 14.45, hemoglobin 7.2, platelet count 57,000. IMPRESSION: An 87-year-old with: 1. End-stage renal disease. 2. Pulmonary effusion. 3. Acute hypoxemic respiratory failure. 4. A terminal advanced sacral decubitus. 5. Protein calorie malnutrition. She continues to do poorly, but does not appear in distress. PLAN: 1. Continue to cycle BiPAP for hypoxemic respiratory failure and for comfort. 2. Continue bronchial hygiene. 3. Continue antibiotics. 4. We will follow up chest x-ray tomorrow. cc: Donis Goncalves MD
[2018-08-11] MEDS: LEVOPHED 8 MG in D5 1/2 NS 250 ML IV SCH ×5 (02:18→23:10)
[2018-08-11 05:06] LABS: BASO# 0.02 X1000 (0.0-0.2); BASO% 0.1 % (0.0-0.8); EOS# 0.01 X1000 (0.0-0.7); EOS% 0.1 % (0.0-10.0); HEMATOCRIT 25.5 % (37.0-47.0); HEMOGLOBIN 7.8 g/dL (12.0-16.0); IMM GRAN# 0.29 X1000 (0.0-0.04); IMM GRAN% 1.5 % (0.0-0.5); LYMPH# 0.58 X1000 (1.2-3.4); MCHC 30.6 g/dL (33-37); MCV 91.4 FL (81-99); MONO# 0.74 X1000 (0.11-0.59); MONO% 3.9 % (1.7-9.3); NEUT# 17.49 X1000 (1.4-6.5); NEUT% 91.4 % (42.2-75.2); PLT 72 X1000 (130-400); RBC 2.79 XMIL (4.2-5.4); RDW 22.9 % (11.5-14.5); WBC 19.13 X1000 (4.8-10.8)
[2018-08-11] MEDS: ZOSYN 2.25 GM in NS 50 ML IV SCH ×4 (05:06→23:10)
[2018-08-11 05:20] LABS: AGAP 12; ALBUMIN 2.8 g/dL (3.5-5.0); BUN 42 mg/dL (8-22); CALCIUM 8.5 mg/dL (8.8-10.2); CHLORIDE 103 mmol/L (98-107); COSMO 282; ESTIMATED GFR > 60; GLUCOSE 55 mg/dL (70-104); PHOSPHORUS 2.8 mg/dL (2.7-4.5); POTASSIUM 4.4 mmol/L (3.5-5.1); SODIUM 137 mmol/L (136-145); TCO2 22 mmol/L (25-35)
[2018-08-11] MEDS ORDERED: D50W SYRINGE ONE (06:45)
[2018-08-11] MEDS ORDERED: D50W SYRINGE IV ONE (06:46)
[2018-08-11] MEDS: HUMULIN R SUBQ SCH ×4 (07:51→21:28)
[2018-08-11] MEDS: SYNTHROID IV SCH (08:07)
--- NOTE | 2018-08-11 08:17 | Diag Imaging Result Doc PS360 ---
CHEST-PORTABLE - 08/11/2018 INDICATION: dyspnea COMPARISON: 08/09/2018 FINDINGS: Stable dialysis catheter and nasogastric tube in good position. Stable cardiomegaly and pulmonary vascular congestion. Stable small left pleural effusion. Stable hazy central interstitial pulmonary edema/volume overload. No new infiltrates. IMPRESSION: No change from prior. Electronically signed by Taz Kearney 08/11/2018 8:15 AM
--- NOTE | 2018-08-11 08:17 | PROGRESS NOTE ---
DATE: 08/11/2018 SUBJECTIVE: This patient started having again more hypoxemia during the night. She was placed back on the BiPAP machine Also, her blood pressure started dropping and we went up with the pressors. Blood sugar went down as well, so I will stop her Lantus and she has been placed on Glucerna. We will monitor her blood sugar closely. On the other hand, this patient has extremely poor prognosis. It is unlikely that this patient will survive this hospitalization. She is DNR level, but the son, who is the power of spark plug tester, wants to continue with treatment. OBJECTIVE: Vital Signs: Temperature 97.4, pulse 77, respiratory rate 28, blood pressure 97/63, oxygen saturation 99 on the BiPAP machine. HEENT: Head normocephalic. No trauma. PERRLA. Neck: Supple. No JVD. No masses. Central trachea. Chest: Decreased breath sounds bilaterally mostly in the right base with some rhonchi and crepitus bilaterally as well. Abdomen: Soft, nondistended. Positive bowel sounds. Extremities: There is 2+ to 3+ lower extremity edema. Also 2+ upper extremity edema. No clubbing. No cyanosis. Neurological examination: The patient is alert, limited evaluation due to her mental status. She is extremely weak. She cannot move too much. She opened her eyes spontaneously when I called her name. I believe she is able to say her name, but is hard to understand. She is on the BiPAP machine. LABORATORY: WBC 19.1, hemoglobin 7.8, hematocrit 25.5, platelets 72. Sodium 137, potassium 4.4, chloride 103, bicarbonate 22. BUN 42, creatinine 1, glucose 55, but now 130. Calcium 8.5, phosphorus 2.8. ASSESSMENT AND PLAN: 1. Septic shock likely due to her infected stage IV sacral ulcer. Continue with antibiotics per Infectious Disease Department. Continue with pressors. She is not a candidate for any kind of surgical procedure at this moment. 2. Hypoxemic respiratory failure. Continue cycling the BiPAP machine, breathing treatment. Pulmonary Department on board. 3. Recent diabetic ketoacidosis, resolved. For now, we will continue with the sliding scale insulin and pattern of blood sugar. I had to stop her Lantus due to hypoglycemia. 4. Type 2 diabetes. Blood sugar dropped to the 40s. Lantus has been stopped, and I will continue with sliding scale insulin. 5. Infected decubitus ulcer, stage IV, likely terminal. I do not think she has any kind of recovery from this lesion. She is not a candidate for debridement or any kind of aggressive, invasive procedure at this moment. 6. End-stage renal disease. Continue with dialysis if she tolerates the procedure. 7. Anemia of chronic disease. Stable. 8. Thrombocytopenia. We will continue to monitor this closely. 9. Severe protein calorie malnutrition. Continue with tube feeding. She is tolerating that, but has been stopped during the night because she started having low blood pressure, but I will restart the feeding right now. 10. Pleural effusion. Pending x-ray today. 11. Possible pneumonia. Continue with antibiotics. 12. Deep vein thrombosis prophylaxis with heparin. 13. Do not resuscitate status. She is do not resuscitate level 1. Prognosis is extremely poor. The son has decided to continue treatment, and also he has decided to put this patient DNR. CRITICAL CARE TIME: 35 minutes. cc: Erickson Hayes MD
[2018-08-11] MEDS: HEPARIN SUBQ SCH ×2 (09:24→21:27)
[2018-08-11] MEDS: PROAMATINE PO SCH ×3 (09:24→16:51)
[2018-08-11] MEDS: PROTONIX IV SCH (09:24)
[2018-08-11] MEDS: SANTYL OINT TOP SCH (09:25)
[2018-08-11] MEDS ORDERED: NS 2,000 ML MISC PRN (09:28)
[2018-08-11] MEDS: ALBUMIN 25% IV SCH (11:03)
--- NOTE | 2018-08-11 14:38 | NEPHROLOGY PROGRESS NOTE ---
DATE: 08/11/2018 SUBJECTIVE: She is on BiPAP, but she does speak to me. OBJECTIVE: Blood pressure 76/42, heart rate 112, respiratory rate 27 and she is currently on SLED. General: Unchanged. Skin: Warm and dry. HEENT: Conjunctivae are pale. Oropharynx is dry. Neck: Veins are difficult to appreciate. Heart: Irregular and tachycardic. Lungs: Equal breath sounds. Decreased. No crackles. Abdomen: Soft with decreased bowel sounds. Nontender. Extremities: 1+ edema. No clubbing or cyanosis. IMPRESSION: Chronic kidney disease 5D. Continue SLED today. The goal of 2 L ultrafiltration if her blood pressure allows. She has been very unstable from a hemodynamic standpoint, and this will certainly limit her ultrafiltration. She is reaching the point where we are not able to dialyze her safely. cc: Gera Roberts MD
--- NOTE | 2018-08-11 14:52 | PULMONOLOGY PROGRESS NOTE ---
DATE: 08/11/2018 SUBJECTIVE: The patient is poorly responsive. The patient developed increased work of breathing with decreased oxygen saturations and tachycardia with initiation of dialysis. OBJECTIVE: Heart rate 149, respiratory rate 27, oxygen saturation 100%. HEENT: Pupils are equal and reactive. Oropharynx evaluation is unable to be done with BiPAP in place. Neck: Supple. Chest: Shallow breath sounds bilaterally. Cardiac: Increased rate. Regular rhythm. Abdomen: Soft with decreased bowel sounds. Extremities: Without edema. LABORATORY: Chest x-ray reveals cardiomegaly with stable vascular congestion and small effusions. No change from prior. IMPRESSION: 87-year-old with acute hypoxemic respiratory failure, pleural effusions, pulmonary edema, advanced sacral decubitus which is unlikely to ever heal, end stage renal disease, progressive difficulty in tolerating hemodialysis. Her prognosis is extremely poor. RECOMMENDATIONS: 1. Cycle BiPAP and nasal cannula/Venti Mask for acute hypoxemic respiratory failure and for comfort. 2. Continue bronchial hygiene. 3. Antibiotics per infectious disease. 4. Prognosis remains poor. She is to be allowed natural if she has decline. cc: Donis Goncalves MD
[2018-08-11] MEDS ORDERED: VANCOMYCIN 1,600 MG in NS 250 ML IV ONE (23:00)
[2018-08-11] MEDS ORDERED: VANCOMYCIN IV PER PHARMACY MISC SCH (23:00)
[2018-08-11] MEDS: TYLENOL PO PRN (23:02)
[2018-08-11] MEDS: COREG NG SCH (23:33)
[2018-08-12 04:39] LABS: BASO# 0.01 X1000 (0.0-0.2); BASO% 0.1 % (0.0-0.8); EOS# 0.01 X1000 (0.0-0.7); EOS% 0.1 % (0.0-10.0); HEMATOCRIT 22.1 % (37.0-47.0); HEMOGLOBIN 6.8 g/dL (12.0-16.0); IMM GRAN# 0.15 X1000 (0.0-0.04); IMM GRAN% 0.8 % (0.0-0.5); LYMPH# 0.62 X1000 (1.2-3.4); LYMPH% 3.2 % (20.5-51.1); MCH 28.5 PG (27-31); MCHC 30.8 g/dL (33-37); MCV 92.5 FL (81-99); MONO# 0.57 X1000 (0.11-0.59); MONO% 2.9 % (1.7-9.3); NEUT# 18.16 X1000 (1.4-6.5); NEUT% 92.9 % (42.2-75.2); PLT 53 X1000 (130-400); RBC 2.39 XMIL (4.2-5.4); RDW 23.5 % (11.5-14.5); WBC 19.52 X1000 (4.8-10.8)
[2018-08-12 04:47] LABS: ALLEN TEST YES; BE -4.5 mmoll (-3.0-3.0); BLOOD TYPE ARTERIAL; HCO3-(ACT) 21.4 mmoll (20.0-26.0); METHB 1.5 % (0.0-1.5); O2(CT) 10.2 mL/dL (15.0-23.0); O2HB 94.6 % (95.0-99.0); PCO2(98.6) 40 mmHg (35-45); PO2(98.6) 137 mmHg (60-100); SAMPLE BLOOD; SAO2 96.9 % (95.0-100.0); THB 7.4 g/dL (11.5-17.4); pH(98.6) 7.33 (7.35-7.45)
[2018-08-12 04:50] LABS: MODALITY BI PAP
[2018-08-12] MEDS: ZOSYN 2.25 GM in NS 50 ML IV SCH ×4 (04:55→22:29)
[2018-08-12 05:05] LABS: AGAP 11; BUN 15 mg/dL (8-22); CALCIUM 8.2 mg/dL (8.8-10.2); CHLORIDE 108 mmol/L (98-107); COSMO 283; CREATININE 0.5 mg/dL (0.5-0.9); ESTIMATED GFR > 60; GLUCOSE 218 mg/dL (70-104); PHOSPHORUS 1.9 mg/dL (2.7-4.5); POTASSIUM 4.8 mmol/L (3.5-5.1); SODIUM 138 mmol/L (136-145); TCO2 19 mmol/L (25-35)
[2018-08-12 05:20] LABS: LYMPHS 3 % (21-51); MONO 1 % (1-9); SEGS 96 % (42-75)
[2018-08-12 05:21] LABS: ANISOCYTOSIS 1+
[2018-08-12] MEDS: TYLENOL PO PRN (06:05)
[2018-08-12] MEDS: SYNTHROID IV SCH (06:06)
[2018-08-12] MEDS: HUMULIN R SUBQ SCH ×4 (07:46→22:29)
--- NOTE | 2018-08-12 07:49 | PROGRESS NOTE ---
DATE: 08/12/2018 SUBJECTIVE: The patient is still on the BiPAP machine. This patient is still getting pressors. Yesterday, she was dialyzed and 2.9 L of fluid have been removed. For now, we will continue with the same management. This patient is Do Not Resuscitate level 1 but we will continue management. Her hemoglobin dropped to 6.8. I will ask for 1 unit of PRBC. OBJECTIVE: Vital Signs: Temperature 96.8 degrees, pulse 109, respiratory rate 17, blood pressure 109/66, oxygen saturation 100% on 3 L of nasal cannula. HEENT: Head normocephalic. No trauma. PERRLA. Neck: Supple. No JVD. No masses. Central trachea. Chest: Decreased breath sounds bilaterally, mostly in the right base, with some rhonchi and crepitus bilaterally as well. Abdomen: Soft. Nondistended. Positive bowel sounds. Extremities: There is 2+ lower extremity edema and also 2+ left upper extremity edema. No clubbing. No cyanosis. Neurological Examination: This patient is sleepy but arousable. She is not following commands. She is extremely weak. Laboratory: WBC 19.5, hemoglobin 6.8, hematocrit 22.1, platelets 53,000. Sodium 138, potassium 4.8, chloride 108, bicarbonate 19, BUN 15, creatinine 0.5, glucose 218, calcium 8.2, phosphorus 1.9, albumin 3. ASSESSMENT AND PLAN: 1. Septic shock, likely secondary to her infected stage IV sacral ulcer. Continue with antibiotics per infectious disease department. Continue with pressors. She is not a candidate for any kind of surgical procedure at this moment. 2. Hypoxemic respiratory failure. Continue cycling the BiPAP machine and Ventimask. Pulmonary department on board. 3. Recent diabetic ketoacidosis, resolved. 4. Type 2 diabetes. Continue with the same management. 5. Infected decubitus ulcer, stage IV, likely terminal. I do not think she has any kind of recovery from this lesion. She is not a candidate for debridement or any kind of aggressive procedure. 6. End-stage renal disease. Continue with dialysis if she tolerates the procedure. 7. Anemia of chronic disease. Hemoglobin dropped to 6.8. I will ask for a unit of blood. 8. Thrombocytopenia. Continue to monitor closely. 9. Severe protein calorie malnutrition. Continue with tube feeding. 10. Pleural effusion which is small on the left side. We will monitor. 11. Possible pneumonia. Continue with antibiotics. 12. Deep vein thrombosis prophylaxis with heparin. 13. This patient is Do Not Resuscitate level 1. 14. Prognosis is extremely. The son, which has the power of regulatory attorney, has decided to continue treatment. CRITICAL CARE TIME: 35 minutes. cc: Erickson Hayes MD
[2018-08-12] MEDS: SANTYL OINT TOP SCH (09:00)
[2018-08-12] MEDS: PROAMATINE PO SCH ×3 (09:00→17:53)
[2018-08-12] MEDS: HEPARIN SUBQ SCH ×2 (10:00→22:28)
[2018-08-12] MEDS: COREG NG SCH ×2 (10:00→22:32)
[2018-08-12] MEDS: ALBUMIN 25% IV SCH (10:00)
[2018-08-12] MEDS: PROTONIX IV SCH (10:00)
[2018-08-12] MEDS: LEVOPHED 8 MG in D5 1/2 NS 250 ML IV SCH ×3 (10:14→20:56)
[2018-08-12] MEDS ORDERED: NS 250 ML ONE (10:20)
[2018-08-12] MEDS ORDERED: MORPHINE IV ONE (10:50)
[2018-08-12] MEDS ORDERED: NORCO-10 PO ONE (11:04)
[2018-08-12] MEDS ORDERED: CARDIZEM IV PRN (13:44)
--- NOTE | 2018-08-12 14:14 | CARDIOLOGY CONSULTATION ---
DATE: 08/12/2018 REASON FOR CONSULTATION: Cardiology was consulted for atrial fibrillation, rapid ventricular rate. HISTORY OF PRESENT ILLNESS: Ms. Nohemi Henson is an 87-year-old - [place] lady who was admitted with encephalopathy, has multiple medical problems with a past medical history of end- stage renal disease, large decubitus ulcer, rectal prolapse, multiple ESBL UTIs who was recently admitted and the patient is admitted with increasing drowsiness. During dialysis the patient goes into her atrial, flutter-fibrillation with rapid ventricular rate. Baseline she has atrial fibrillation as well as history of paroxysmal atrial fibrillation. History could not be obtained from the patient. History was obtained from the chart. Past medical history and review of systems could not be obtained from the patient. PAST MEDICAL HISTORY: 1. Diabetes. End-stage renal disease on dialysis. 2. Pulmonary arterial hypertension, coronary artery disease, status post coronary artery bypass grafting in 1989 with saphenous vein graft to PDA, saphenous vein graft to OM and MEJIA to left anterior descending artery. 3. Hypertension. 4. Thrombocytopenia, chronic. 5. Arthritis. 6. Hypothyroidism. 7. Anemia of chronic disease. 8. Cholecystectomy. 9. Right tunnel placed for dialysis. HOME MEDICATIONS: Tom 1 b.i.d., Combigan eye drops, calcium, folic acid, Synthroid 100 mcg a day Pravachol 40, Tylenol as needed, Colace, DuoNeb, Lidoderm, Calmoseptine, Midodrine 10 t.i.d., Prilosec 40. In the hospital she is also receiving piperacillin, has received vancomycin, in addition to Coreg 3.125 mg twice daily. PHYSICAL EXAMINATION: Vital signs: The patient is on Levophed, blood pressure 105/61. First and second heart sounds were heard. There was a soft murmur. Respiratory System : Distant breath sounds. NG tube in place. Abdomen: Soft. Integument: She has bed sores. Patient has a sacral decubiti. Neurological examination: Limited. LABORATORY EXAMINATION: Microbiology revealed blood culture Staph hominis. In the wound there was E coli and Proteus and Pseudomonas. Final blood culture was coagulase- negative staphylococci. ASSESSMENT AND PLAN: 1. Ms. Nohemi Henson is an 87-year-old -[place] lady who is Do Not Resuscitate level 1, has coronary artery disease, coronary artery bypass grafting, atrial fibrillation, hypertension, end-stage renal disease on dialysis. She is admitted with altered mental status and from a cardiac standpoint, currently her heart rate is under control at a rate of 74 beats per minute in atrial fibrillation. There is a right bundle branch block. She goes into atrial flutter-fibrillation during dialysis. Would recommend Cardizem 10 mg IV p.r.n. as needed if her heart rate jumps up to greater than 140. Otherwise continue with her beta- jarek as prescribed. 2. She is not anticoagulated given her chronic thrombocytopenia and anemia. 3. She has sepsis and is on Levophed. She is on multiple antibiotics. I have not made any changes. 4. Diabetes. Continue with her current medications. 5.Hypothyroidism she takes Levothyroxine. Continue with the current medications. Thank you for the consult. cc: Augusto Fregoso MD [facility]
--- NOTE | 2018-08-12 20:35 | PULMONOLOGY PROGRESS NOTE ---
DATE: 08/12/2018 SUBJECTIVE: The patient has had increased work of breathing and has required BiPAP most of the day. She is nonconversant. She remains on Levophed for hypotension. OBJECTIVE: Blood pressure 83/50, heart rate 87, respiratory rate 21, oxygen saturation 92% on BiPAP.HEENT: Pupils are equal and reactive. Oropharynx evaluation is limited with BiPAP in place. Neck: Supple. Chest: Reveals coarse rhonchi bilaterally. Cardiac: Irregular, irregular, normal S1, normal S2. Abdomen: Soft with diminished bowel sounds. Extremities: Reveal trace edema. The patient has a large sacral decubitus but was not rolled to examine this process. LABORATORIES: White blood count 19.52, hemoglobin 6.8, platelet count 53,000. Chemistry sodium 138, potassium 4.8, chloride 108, bicarbonate 19, BUN 15, creatinine 0.5, glucose 218. IMPRESSION: An 87-year-old with acute hypoxemic respiratory failure, pulmonary edema with pleural effusions, end-stage renal disease with increased difficulty tolerating hemodialysis, severe advanced sacral decubitus which will not likely heal, atrial fibrillation with rapid ventricular response, some pain. Family does not wish mother to have morphine. RECOMMENDATIONS: 1. Continue to cycle BiPAP in nasal cannula as tolerated. 2. Continue bronchial hygiene. 3. Continue antibiotics. 4. Agree with current resuscitation status which is to allow natural . However, the patient's family is not completely on board with comfort measures and continues to push for aggressive treatment just short of cardiac arrest. cc: Donis Goncalves MD
[2018-08-13] MEDS: LEVOPHED 8 MG in D5 1/2 NS 250 ML IV SCH ×4 (03:04→20:27)
[2018-08-13] MEDS: ZOSYN 2.25 GM in NS 50 ML IV SCH ×2 (04:58→11:10)
[2018-08-13 05:19] LABS: ALLEN TEST YES; BE -5.5 mmoll (-3.0-3.0); BLOOD TYPE ARTERIAL; HCO3-(ACT) 20.6 mmoll (20.0-26.0); METHB 0.8 % (0.0-1.5); O2(CT) 13.3 mL/dL (15.0-23.0); O2HB 95.6 % (95.0-99.0); PCO2(98.6) 33 mmHg (35-45); PO2(98.6) 130 mmHg (60-100); SAMPLE BLOOD; SAO2 97.7 % (95.0-100.0); THB 9.7 g/dL (11.5-17.4); pH(98.6) 7.37 (7.35-7.45)
[2018-08-13 05:20] LABS: MODALITY BI PAP
[2018-08-13] MEDS: HUMULIN R SUBQ SCH ×4 (06:12→20:31)
[2018-08-13] MEDS: SODIUM CHLORIDE 0.9% INJ PRN (06:25)
[2018-08-13] MEDS: SYNTHROID IV SCH (06:26)
[2018-08-13 06:29] LABS: BASO# 0.01 X1000 (0.0-0.2); BASO% 0.1 % (0.0-0.8); EOS# 0.04 X1000 (0.0-0.7); EOS% 0.2 % (0.0-10.0); HEMATOCRIT 28.2 % (37.0-47.0); IMM GRAN# 0.12 X1000 (0.0-0.04); IMM GRAN% 0.6 % (0.0-0.5); LYMPH# 0.67 X1000 (1.2-3.4); LYMPH% 3.5 % (20.5-51.1); MCHC 31.9 g/dL (33-37); MONO% 2.1 % (1.7-9.3); NEUT# 17.69 X1000 (1.4-6.5); NEUT% 93.5 % (42.2-75.2); PLT 64 X1000 (130-400); RDW 22.3 % (11.5-14.5); WBC 18.93 X1000 (4.8-10.8)
[2018-08-13 06:46] LABS: AGAP 14; BUN 25 mg/dL (8-22); CALCIUM 8.5 mg/dL (8.8-10.2); CHLORIDE 106 mmol/L (98-107); COSMO 282; CREATININE 0.8 mg/dL (0.5-0.9); ESTIMATED GFR > 60; GLUCOSE 125 mg/dL (70-104); POTASSIUM 5.5 mmol/L (3.5-5.1); SODIUM 138 mmol/L (136-145); TCO2 18 mmol/L (25-35)
--- NOTE | 2018-08-13 07:55 | EKG Report ---
Test Performed on : 08/11/2018 9:06:38 PM Test Reason : Tachycardia Blood Pressure : / mmHG Vent. Rate : 148 BPM Atrial Rate : 076 BPM P-R Int : 000 ms QRS Dur : 132 ms QT Int : 334 ms P-R-T Axes : 000 246 026 degrees QTc Int : 524 ms Wide QRS tachycardia. with premature ventricular complexes. or fusion complexes Right bundle branch block Abnormal ECG When compared with ECG of 11-AUG-2018 21:06, (Unconfirmed) fusion complexes are now present premature ventricular complexes. are now present Suspect atrial flutter with 2:1 conduction Confirmed by [place] LEON, Yohannes Saldaña ([id number]) on 08/13/2018 8:48:04 AM
[2018-08-13] MEDS: PROTONIX IV SCH (08:19)
[2018-08-13] MEDS: ALBUMIN 25% IV SCH (08:19)
[2018-08-13] MEDS: SANTYL OINT TOP SCH (08:20)
[2018-08-13] MEDS: COREG NG SCH ×2 (08:20→20:30)
[2018-08-13] MEDS: HEPARIN SUBQ SCH ×2 (08:20→20:28)
--- NOTE | 2018-08-13 08:21 | PROGRESS NOTE ---
DATE: 08/13/2018 SUBJECTIVE: This patient is still using the BiPAP machine. As per the nurse, every time we try to stop the BiPAP, she desaturates. She is still on pressors. She is tolerating the tube feeding as well. Her hemoglobin improved from 6.8 to 9 after 1 unit of PRBC. The son, which has the power of ip technology transactions attorney, has not allowed us to use morphine on this patient but yesterday, she received a dose of [place] and he agreed with that so I will put this patient on [place] p.r.n. because she is in pain. Extremely poor prognosis. OBJECTIVE: Vital Signs: Temperature 94.8, pulse 86, respiratory rate 31, blood pressure 93/58, oxygen saturation 100% on the BiPAP machine. HEENT: Head normocephalic. No trauma. PERRLA. Neck: Supple. No JVD. No masses. Central trachea. Chest: Decreased breath sounds bilaterally, mostly at the right base, with some rhonchi and crepitus bilaterally as well. Abdomen: Soft. Nondistended. Positive bowel sounds. Extremities: There is 2 to 3+ lower extremity edema and also 2+ left upper extremity edema. No clubbing. No cyanosis. Neurological Examination: This patient is sleepy but arousable. She is not following commands. I do believe she is able to say her name but it is really hard to understand what she says. She is extremely weak. Laboratory: WBC 18.9, hemoglobin 9, hematocrit 28.2, platelets 64,000. Sodium 138, potassium 5.5, chloride 106, bicarbonate 18, BUN 25, creatinine 0.8, glucose 125, calcium 8.5. ASSESSMENT AND PLAN: 1. Septic shock, likely secondary to her infected stage IV sacral ulcer. Infectious disease department following this patient closely. Continue with antibiotics. Continue with pressors. She is not a candidate for any kind of surgical procedure at this point. She has been evaluated multiple times by the surgery department. Wound care on board. 2. Hypoxemic respiratory failure. Continue cycling the BiPAP machine and the Ventimask. Pulmonary department on board. Continue with oxygen supplementation and monitor. 3. Recent diabetic ketoacidosis, resolved. 4. Type 2 diabetes. Continue with the same management. Seems to be more stable. 5. Infected stage IV decubitus ulcer, sacral area. I do not think this patient has any kind of recovery from this lesion. She is not a candidate for debridement or any kind of aggressive procedure. Surgery department on board as well as the wound care nurse. Continue with antibiotics per infectious disease department. 6. End-stage renal disease. Continue with dialysis as scheduled if she tolerates. She has been having episodes of hypotension and tachycardia with dialysis. Probably, we are close to not being able to dialyze this patient anymore but for now, we will continue trying. 7. Anemia of chronic disease. Hemoglobin dropped to 6.8 and she received one unit of packed red blood cells. Today, the hemoglobin is 9. We will continue to monitor his closely. 8. Thrombocytopenia. Continue to monitor. 9. Severe protein calorie malnutrition. Continue with tube feeding. She is tolerating this well. As per the nurse, the son has requested to start feeding this patient through her mouth but I do not think this is a good idea because this patient is lethargic, extremely somnolent, and weak. The possibility of aspirating is extremely high. 10. Pleural effusion which is small on the left side. We will monitor. 11. Possible pneumonia. Continue with antibiotics. 12. Deep vein thrombosis prophylaxis with heparin. 13. Resuscitation status. This patient is Do Not Resuscitate level 1. 14. Her prognosis is extremely poor. Her son, which has the power of ip technology transactions attorney, has decided to continue treatment even though she is Do Not Resuscitate and even though she is declining. He continues to push for aggressive treatment. We have been trying to avoid the conversation about comfort measures only and/or stopping treatment because he really gets angry about it. He told me that he will wait for God to decide if she needs to or not. He requested not to use morphine on this patient but yesterday, he realized that she was in pain so he let us use treatment through the nasogastric tube, [place]. This has been placed as needed. CRITICAL CARE TIME: 35 minutes. cc: Erickson Hayes MD
[2018-08-13] MEDS ORDERED: NS 2,000 ML MISC PRN (08:48)
--- NOTE | 2018-08-13 09:57 | EKG Report ---
Test Performed on : 08/12/2018 1:44:35 PM Test Reason : NO EKG ORDER FOR MUSE Blood Pressure : / mmHG Vent. Rate : 074 BPM Atrial Rate : 065 BPM P-R Int : 000 ms QRS Dur : 142 ms QT Int : 458 ms P-R-T Axes : 000 254 -04 degrees QTc Int : 508 ms Atrial fibrillation. Right bundle branch block Abnormal ECG When compared with ECG of 11-AUG-2018 Atrial flutter. has converted to a-fib Confirmed by [place] LEON, Yohannes Saldaña ([id number]) on 08/13/2018 5:31:45 PM
[2018-08-13] MEDS: PROAMATINE PO SCH ×3 (10:14→17:50)
--- NOTE | 2018-08-13 11:24 | NEPHROLOGY PROGRESS NOTE ---
DATE: 08/13/2018 SUBJECTIVE: The patient is resting in bed. She will open her eyes to vigorous verbal stimuli, and make eye contact. She will then follow commands to squeeze hands. Her right grasp is much stronger than the left. The left is barely perceptible. She remains on BiPAP. OBJECTIVE: Vital Signs: Temperature 94.8 degrees, pulse 86, respiratory rate 31, blood pressure 93/58. Intake 1.7 L, output none. General: This is a acutely/chronically ill- appearing elderly female, resting in bed. She current remains on BiPAP. HEENT: Normocephalic, atraumatic. Oral mucosa appears dry. Neck: Supple. Unable to discern JVD. Cardiovascular: Regular rate, occasionally tachycardic. Remains on pressor support, with hypotension. Pulmonary: She has decreased breath sounds, rhonchi bilaterally. Abdomen: Soft. Positive bowel sounds. : No urine. Extremities: 3+ edema. Again, squeezes the right hand, much more so than the left. Integumentary: Skin is warm and dry. LAB DATA: WBC of 18.9, hemoglobin 9.0. Sodium 138, potassium 5.5, CO2 18, creatinine 0.8. ASSESSMENT AND PLAN: 1. Chronic kidney disease, 5D. We will run her on SLED today secondary to her fluid volume status and her hypotension, instead of attempting a routine dialysis. Her hypotension has made it difficult for any real fluid removal. We will attempt a goal of 2 to 3 L if she can tolerate that today. 2. Electrolytes, acid-base balance. She will be on a 30/7 bicarb bath today. 3. Hypotension. She remains on pressor support. 4. Atrial fibrillation and atrial flutter. Followed by Cardiology. She has Cardizem as needed if she goes into this during dialysis. She has had a history of this, thus far. Dictated by MADNI Eli for Gera Roberts MD Face to face encounter, data reviewed, discussed with David Moreno on 08/13/18. I agree with the above assessment and plan of care. cc: Gera Roberts MD [facility]
--- NOTE | 2018-08-13 11:45 | INFECTIOUS DISEASE PROGRESS NO ---
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 MEDICATIONS: The patient has been receiving Zosyn. PHYSICAL EXAMINATION: Vital Signs: Temperature 96.3 degrees, pulse 86, respirations 30, blood pressure 86/49. General: This is an ill-appearing, malnourished, elderly female. She has a decreased level of consciousness. Head, Eyes, Ears, Nose, Throat: No drainage was noted from the nose or ears. Neck: No stiffness. Lungs: Clear to auscultation. Cardiovascular: Heart rate is regular. Abdomen: Soft and nontender. Thorax: The patient has a right chest dialysis catheter in place. The site is not bleeding. Neurologic: The patient has decreased level of consciousness. She did not respond to verbal stimuli. LAB AND X-RAY: The patient's most recent culture from the sacrum is growing Proteus and Pseudomonas. The patient's CBC shows a white count of 18,930, hemoglobin 9, and platelet count 64,000. Blood gases show a pH of 7.37, a PO2 of 130, and a pCO2 of 33. Creatinine is 0.8. GFR is greater than 60. The patient has 1 out of 2 blood cultures, which are growing a coagulase- negative Staph. ASSESSMENT AND PLAN: As regarding the patient's blood culture, 1 out of 2 blood cultures is growing a coagulase-negative Staphylococcus. This represents a contaminant, which does not require antibiotic treatment. The patient's most recent culture from her sacrum shows that the 2 organisms isolated, namely Pseudomonas and Proteus, are both susceptible to cefepime, to which I have switched the patient. Later today, the patient's wound will be re-dressed and I have asked the nurse to page me when that occurs or so I can see how the patient's wound looks. COMORBIDITIES: The patient is elderly, malnourished. She has end-stage renal disease and currently is receiving SLED, which is a type of dialysis to remove excess fluid. cc: Ward Brennan MD
[2018-08-13] MEDS: NORCO-10 PO PRN (18:27)
[2018-08-13] MEDS: MAXIPIME 1 GM in NS 50 ML IV SCH (20:31)
[2018-08-13] MEDS ORDERED: VANCOMYCIN 1,250 MG in NS 250 ML IV SCH (23:00)
--- NOTE | 2018-08-14 01:07 | PULMONOLOGY PROGRESS NOTE ---
DATE: 08/13/2018 SUBJECTIVE: The patient cannot remove the BiPAP without significant oxygen desaturation. She currently is on dialysis. She is intermittently moaning. She remains on Levophed. OBJECTIVE: Vital Signs: The patient has been afebrile for the last 24 hours. Blood pressure is 96/62, heart rate 119, respiratory rate 36, oxygen saturation 95%. Heent: Pupils are equal and reactive. Oropharynx is dry appearing but BiPAP in place. Neck: Supple. Chest: Reveals shallow breath sounds bilaterally. Cardiac: S1 and S2. Abdomen: Soft and without hepatosplenomegaly. Extremities: Unchanged. LABORATORY DATA: Chest x-ray has been ordered for tomorrow, arterial blood gas reveals a pH of 7.37, pCO2 of 33, PO2 of 138. White blood count 18.9, hemoglobin 9.0, platelet count 64,000. IMPRESSION: An 87-year-old with acute hypoxemic respiratory failure, pulmonary edema with pleural effusions, end-stage renal disease. Due to her large infected sacral ulcer/decubitus, ongoing hypotension, protein calorie malnutrition, and atrial fibrillation it has been difficult to remove fluid. Family has been reluctant to give the patient morphine or sedatives. RECOMMENDATION: 1. Continue to cycle BiPAP for hypoxemia and for comfort. 2. Continue bronchial hygiene. 3. Continue antibiotics. 4. Prognosis is poor. Comfort measures is recommended but family continues to push for aggressive care. The patient is an allow natural if she were to have a cardiac arrest. cc: Donis Goncalves MD
[2018-08-14] MEDS: LEVOPHED 8 MG in D5 1/2 NS 250 ML IV SCH ×4 (01:42→17:29)
[2018-08-14 04:42] LABS: ALLEN TEST YES; BLOOD TYPE ARTERIAL; METHB 0.7 % (0.0-1.5); O2HB 95.4 % (95.0-99.0); PCO2(98.6) 42 mmHg (35-45); PO2(98.6) 105 mmHg (60-100); SAMPLE BLOOD; SAO2 97.5 % (95.0-100.0); THB 8.8 g/dL (11.5-17.4); pH(98.6) 7.44 (7.35-7.45)
[2018-08-14 04:44] LABS: MODALITY BI PAP
[2018-08-14 05:50] LABS: BASO# 0.01 X1000 (0.0-0.2); BASO% 0.1 % (0.0-0.8); EOS# 0.05 X1000 (0.0-0.7); EOS% 0.3 % (0.0-10.0); HEMATOCRIT 26.9 % (37.0-47.0); HEMOGLOBIN 8.2 g/dL (12.0-16.0); IMM GRAN# 0.14 X1000 (0.0-0.04); IMM GRAN% 0.9 % (0.0-0.5); LYMPH# 0.83 X1000 (1.2-3.4); LYMPH% 5.3 % (20.5-51.1); MCH 28.3 PG (27-31); MCHC 30.5 g/dL (33-37); MCV 92.8 FL (81-99); MONO# 0.32 X1000 (0.11-0.59); MONO% 2.1 % (1.7-9.3); NEUT# 14.22 X1000 (1.4-6.5); NEUT% 91.3 % (42.2-75.2); PLT 72 X1000 (130-400); RDW 23.2 % (11.5-14.5); WBC 15.57 X1000 (4.8-10.8)
[2018-08-14] MEDS: NORCO-10 PO PRN ×3 (06:03→20:04)
[2018-08-14] MEDS: SODIUM CHLORIDE 0.9% INJ PRN ×2 (06:04→08:53)
[2018-08-14] MEDS: SYNTHROID IV SCH (06:06)
[2018-08-14] MEDS: HUMULIN R SUBQ SCH ×5 (06:09→20:06)
[2018-08-14 06:30] LABS: AGAP 9; BUN 14 mg/dL (8-22); CALCIUM 7.7 mg/dL (8.8-10.2); CHLORIDE 101 mmol/L (98-107); COSMO 284; CREATININE 0.5 mg/dL (0.5-0.9); ESTIMATED GFR > 60; GLUCOSE 248 mg/dL (70-104); POTASSIUM 5.2 mmol/L (3.5-5.1); SODIUM 138 mmol/L (136-145); TCO2 28 mmol/L (25-35)
--- NOTE | 2018-08-14 07:11 | Diag Imaging Result Doc PS360 ---
EXAM: CHEST-PORTABLE 08/14/2018 HISTORY: dyspnea TECHNIQUE: AP portable at 0532 COMMENT: There is a double-lumen catheter in the right internal jugular with its tip in the right atrium. There is marked cardiomegaly. There are bilateral pleural effusions. This has worsened particularly on the right side since the previous study of 08/11/2018. There is also worsening in the interstitial pulmonary edema. IMPRESSION: Worsened pulmonary edema and right pleural effusion. Electronically signed by Jemal Poe 08/14/2018 7:09 AM
[2018-08-14 07:16] LABS: LYMPHS 4 % (21-51); MONO 2 % (1-9); SEGS 94 % (42-75)
[2018-08-14] MEDS: PROTONIX IV SCH (08:53)
[2018-08-14] MEDS: HEPARIN SUBQ SCH ×2 (08:53→20:05)
[2018-08-14] MEDS: PROAMATINE PO SCH ×3 (08:53→17:45)
[2018-08-14] MEDS: COREG NG SCH ×2 (08:53→20:05)
[2018-08-14] MEDS: SANTYL OINT TOP SCH (08:54)
--- NOTE | 2018-08-14 12:47 | PROGRESS NOTE ---
DATE: 08/14/2018 SUBJECTIVE: Patient is resting on bed. She is poorly responsive. OBJECTIVE: Vital signs: Temperature 97.9 degrees, pulse 109, respirations 30, blood pressure 110/59, oxygen pressure is 100%. HEENT: Pupils equal, poorly reactive to light. She is anicteric. She does have an NG tube in place. Neck: No lymphadenopathy or thyromegaly. Cardiovascular: S1, S2. Respiratory system: Has evidence of good air entry bilaterally. Abdomen: Soft, nontender. No masses felt. Extremities: Has edema in both lower extremities. Central nervous system: Patient is poorly responsive. No obvious focal deficits noted. LABS: WBC is 15.57, hematocrit 26.9 with a platelet count of 72,000. ABG 7.44/ 42/105/97.5%. Sodium was 138, potassium is 5.2, chloride 101, bicarb 29, BUN is 14, creatinine 0.5. X-ray of the chest shows worsening pulmonary edema and right pleural effusion. ASSESSMENT AND PLAN: 1. Acute respiratory failure. Chest x-ray shows evidence of pulmonary edema with right pleural effusion. In light of the patient's low blood pressure (hypotension), patient unable to undergo hemodialysis to address the issue of volume overload. In the meanwhile, patient is to be on oxygen, keep saturations above 90. She can be on BiPAP if needed. Pulmonary following. 2. Septic shock. This is thought to be secondary to infective stage IV sacral ulcer. Continue antibiotics as well as pressors. 3. Diabetes mellitus. Monitor blood sugar levels and maintain patient on sliding scale insulin. 4. End-stage renal disease. Hypotension makes it difficult for patient to undergo hemodialysis. The patient to be followed by the Nephrology team. 5. Anemia of chronic disease. Follow up on hemoglobin and hematocrit. Transfuse packed red blood cells as needed. 6. Thrombocytopenia. Etiology not clear. Probably related to multifactorial etiologies. We will continue to monitor platelet count. 7. Atrial fibrillation. Cardiology is following. 8. Advanced directives. The patient is a DNR level 1. 9. Deep vein thrombosis prophylaxis. Heparin. 10. Gastrointestinal prophylaxis. Proton-pump inhibitor. cc: Domo Sesay MD [facility]
--- NOTE | 2018-08-14 14:03 | INFECTIOUS DISEASE PROGRESS NO ---
DATE: 08/14/2018 PRESENT ILLNESS: The patient has an infected deep sacral wound with an associated osteomyelitis. MEDICATIONS: The patient is on cefepime. Overall, the patient has had a week of antibiotics intravenously. PHYSICAL EXAMINATION: Vital Signs: Temperature is 99 degrees, pulse 105, respirations 24, blood pressure 97/52. General: This is a chronically ill and malnourished-appearing, elderly female. She today, did not respond to verbal stimuli. HEENT: No drainage was noted from the nose or ears. Neck: No meningismus. Lungs: Clear to auscultation. Cardiovascular: Heart rate at times was regular. At other times, it was slightly irregular. Abdomen: Soft and nontender. Thorax: The patient has a tunneled dialysis catheter present on the right side. The site is not draining. Pelvic: The patient's sacral wound remains large. It tunnels underneath the skin. There is purulent drainage, and visible bone is present. IMAGING AND LABORATORY DATA: A chest x-ray shows worsened pulmonary edema. CBC shows a white count of 15,570, hemoglobin 8.2, and platelet count 72,000. Creatinine 0.5. GFR is greater than 60. Blood gases show a pH of 7.44, pO2 of 105, and a pCO2 of 42. ASSESSMENT AND PLAN: The patient has an infected sacral decubitus wound. There is an associated osteomyelitis. The plan is to continue cefepime. COMORBIDITIES: The patient is elderly and malnourished. She has end-stage renal disease. cc: Ward Brennan MD
--- NOTE | 2018-08-14 15:29 | NEPHROLOGY PROGRESS NOTE ---
DATE: 08/14/2018 TIME SEEN: 0800. SUBJECTIVE: The patient stated "good morning" when I said good morning to her. She opened her eyes briefly and then closed them back. OBJECTIVE: Vital Signs: Temperature 99.2, pulse 100, respiratory rate 26, blood pressure 116/72. Intake 2.1 L. Output 2.0 L. PHYSICAL EXAMINATION: General: Elderly female resting in bed in no acute distress. HEENT: Normocephalic, atraumatic. ANU. Oral mucosa moist. Neck supple. Cardiovascular: Tachycardic at times. Regular rate. Pulmonary: Rhonchi bilaterally. Abdomen soft, positive bowel sounds. : Not inspected. Extremities: 1+ edema. Integumentary: Skin is warm and dry. LABORATORY DATA: WBC of 15.5, hemoglobin 8.2, sodium 138, potassium 5.2, CO2 of 28, creatinine 0.5. ASSESSMENT AND PLAN: 1. Chronic kidney disease. She tolerated sustained low-efficiency dialysis yesterday with 2 L fluid removal. She continues to have fluid on, but we will hold dialysis today and try to keep her on a 3-day a week schedule to see if we can tolerate that with her heart rate. She tends to go into atrial fibrillation/A flutter during dialysis. 2. Acute respiratory failure. Continue dialysis with sustained low-efficiency dialysis on dialysis days to maximize fluid volume removal. 3. Septic shock. Continue antibiotics. 4. Anemia. Transfuse as needed. Dictated by MANDI Eli for Gera Roberts MD Face to face encounter, data reviewed, discussed with David Moreno on 08/14/17. I agree with the above assessment and plan of care. cc: Gera Roberts MD [facility]
[2018-08-14] MEDS: MAXIPIME 1 GM in NS 50 ML IV SCH (20:05)
[2018-08-14] MEDS: NEO-SYNEPHRINE 100 MG in NS 250 ML IV SCH ×2 (21:07→21:11)
[2018-08-14] MEDS ORDERED: LEVOPHED 16 MG in D5 1/2 NS 250 ML IV SCH (21:45)
[2018-08-15] MEDS ORDERED: DOPAMINE 800 MG/D5W 800 MG/500 ML IV.SOLN IV SCH (01:00)
[2018-08-15 01:12] VITALS: BP 70/17
--- NOTE | 2018-08-15 01:26 | PULMONOLOGY PROGRESS NOTE ---
DATE: 08/14/2018 SUBJECTIVE: The patient is currently off of the BiPAP. She is poorly responsive. She intermittently moans. She will not follow commands. OBJECTIVE: Vital Signs: The patient is currently on Sled hemodialysis. She remains on Levophed. She has been afebrile for the last 24 hours. Blood pressure 92/55, heart rate 92, respiratory rate 23, oxygen saturation 96% on nasal cannula. HEENT: Pupils are equal and reactive. Oropharynx is clear but dry. Neck: Supple. Chest: Reveals diminished breath sounds bilaterally with coarse crackles. Cardiac: S1 and S2. Abdomen: Soft with diminished bowel sounds. Extremities: Reveal chronic changes. LABORATORY DATA: Chest x-ray reveals worsened pulmonary edema and pleural effusions right greater than left. IMPRESSION: The patient is an 87-year-old with end-stage renal disease, pleural effusions, pulmonary edema, acute respiratory failure, end-stage renal disease, large infected sacral ulcer decubitus, severe protein calorie malnutrition, with atrial fibrillation. Despite aggressive management, she is not improving or thriving. She is a do not resuscitate level 1, but the family has not been comfortable withdrawing care. RECOMMENDATIONS: 1. Continue to cycle BiPAP for hypoxemia and for comfort. 2. Continue bronchial hygiene. 3. Continue antibiotics per Infectious Disease. 4. Prognosis is poor. When she passes she will not undergo resuscitation or ACLS, she will be allowed to have a natural . cc: Donis Goncalves MD
--- NOTE | 2018-09-01 09:19 | DISCHARGE SUMMARY ---
ADMISSION DATE: 08/01/2018 DISCHARGE DATE: 08/15/2018 PRINCIPAL DIAGNOSIS: Acute respiratory failure. SECONDARY DIAGNOSES: 1. Septic shock. 2. Sacral decubitus ulcer with osteomyelitis of the sacrum. 3. Encephalopathy. 4. Atrial fibrillation with rapid ventricular rate. 5. End-stage renal disease. 6. Diabetes mellitus. 7. Anemia of chronic disease. 8. Thrombocytopenia. 9. Pneumonia. CONSULTATIONS: 1. Dr. Ward Brennan, Infectious Disease. 2. Dr. Gera Roberts, Nephrology. 3. Dr. Kingslye Villegas, Surgery. 4. Dr. Donis Goncalves Pulmonology. PROCEDURES DONE DURING THIS HOSPITAL STAY: Central venous line placement for IV access. This was done on 08/04/[address] Hubbard. HOSPITAL COURSE: Ms. Nohemi Henson is an 87-year-old female, with a history of multiple medical conditions including end-stage renal disease on hemodialysis, large sacral decubitus ulcer with a rectal prolapse, cough, and multiple UTIs. She was diagnosed as having acute encephalopathy, sepsis, as well as atrial fibrillation with rapid ventricular rate at the time of presentation. She was also noted to be in septic shock. Source of sepsis was sacral decubitus ulcer as well as pneumonia. The patient required pressors. Antibiotic management was done by the Infectious Disease team. In light of hypotension doing hemodialysis on this patient was challenging. She was also noted to be in respiratory failure, requiring BiPAP support. While receiving care the patient subsequently 08/14/2018. She was DNR and ACLS protocol was not done. cc: Domo Sesay MD [facility]
== END 2018-08-15 00:41 | disposition expired | DRG 871 ==
LOC: SUATTDRO → ED 06:07 → 3N 09:38 → SUATTDRO 09:38 → 3N 13:25 → ICU 08-03 16:22
PROVIDERS: ATTEND Internal Medicine
CPT/HCPCS: 36430; 71010; 71045; 74000; 74018; 80048; 80053; 80069; 82009; 82805; 82948; 83036; 83605; 83735; 84100; 84134; 84443; 85025; 85027; 85610; 85730; 86850; 86900; 86901; 86920; 87040; 87070; 87077; 87186; 93005; 93010; 94660; 94761; 94762; 97110; 97162; 99285; A9270; C9113; J0692; J1335; J1644; J1720; J2370; J2543; J3370; J3475; J3480; J7030; J7040; J7042; J7050; P9016; P9047; S0164; XXXXX